=== PATIENT | female | born 1985 | race Caucasian/White ===

== ENCOUNTER 2016-10-13 14:52 | Emergency (ER) | payer OTHER ==
[2016-10-13] MEDS ORDERED: oxyCODONE/Acetamin 5/325 MG* TAB PO ONE ×2 (17:54→18:03)
--- NOTE | 2016-10-13 17:54 | ED ---
GI/ HPI - HPI Summary HPI Summary: 30F presents with anal fissure since June. She states the pain had been been manageable but in the past three days the pain has gotten worst. was seen at [facility] and given topical lidocaine which states has not helped. She has been using stool softeners daily. She denies any fevers or bloody stools. She does not have a history of crohns or UC. - History of Current Complaint Chief Complaint: EDGeneral Time Seen by Provider: 10/13/16 17:33 Stated Complaint: PAIN, Pain Intensity: 6 - Allergy/Home Medications Allergies/Adverse Reactions: Allergies Allergy/AdvReac Type Severity Reaction Status Date / Time Ciprofloxacin [From Cipro] Allergy Intermediate Rash Verified 10/13/16 14:59 Latex Allergy Intermediate Rash Verified 10/13/16 14:59 PMH/Surg Hx/FS Hx/Imm Hx Endocrine/Hematology History: Denies: Hx Diabetes, Hx Thyroid Disease Cardiovascular History: Denies: Hx Hypertension, Other Cardiovascular Problems/Disorders Respiratory History: Reports: Hx Asthma Denies: Hx Chronic Obstructive Pulmonary Disease (COPD), Other Respiratory Problems/Disorders GI History: Denies: Hx Ulcer, Other GI Disorders History: Reports: Hx Kidney Infection - 2006 Musculoskeletal History: Denies: Other Musculoskeletal History Sensory History: Reports: Hx Contacts or Glasses - GLASSES Denies: Hx Hearing Aid Opthamlomology History: Reports: Hx Contacts or Glasses - GLASSES Neurological History: Reports: Other Neuro Impairments/Disorders - ADD Psychiatric History: Reports: Hx Anxiety - ON MEDS - Surgical History Surgery Procedure, Year, and Place: Ovarian Cyst removal 2006 and 2012; wisdom teeth Hx Anesthesia Reactions: No Infectious Disease History: No Infectious Disease History: Denies: Hx Clostridium Difficile, Hx Hepatitis, Hx Human Immunodeficiency Virus (HIV), Hx of Known/Suspected MRSA, Hx Shingles, Hx Tuberculosis, Hx Known/ Suspected VRE, Hx Known/Suspected VRSA, History Other Infectious Disease, Traveled Outside the [place] in Last 30 Days - Family History Known Family History: Negative: Cardiac Disease - Social History Alcohol Use: Occasionally Substance Use Type: Reports: Marijuana Smoking Status (MU): Heavy Every Day Tobacco Smoker Type: Cigarettes Amount Used/How Often: 3/4 ppd Length of Time of Smoking/Using Tobacco: 4+ YEARS Review of Systems Negative: Fever Negative: Chest Pain Negative: Shortness Of Breath Positive: Other - anal fissure All Other Systems Reviewed And Are Negative: Yes Physical Exam Triage Information Reviewed: Yes Vital Signs On Initial Exam: Initial Vitals Temp Pulse Resp BP Pulse Ox 99.1 F 74 20 134/80 100 10/13/16 15:00 10/13/16 15:00 10/13/16 15:00 10/13/16 15:00 10/13/16 15:00 Vital Signs Reviewed: Yes Appearance: Positive: Well-Appearing Skin: Positive: Warm, Dry Head/Face: Positive: Normal Head/Face Inspection Eyes: Positive: Normal, Conjunctiva Clear Respiratory/Lung Sounds: Positive: Clear to Auscultation, Breath Sounds Present Cardiovascular: Positive: Normal, RRR Abdomen Description: Positive: Nontender, Soft, Other: - anal fissure present on exam, normal rectal tone Bowel Sounds: Positive: Present Diagnostics - Vital Signs Vital Signs Temp Pulse Resp BP Pulse Ox 10/13/16 15:00 99.1 F 74 20 134/80 100 - Laboratory Lab Statement: Any lab studies that have been ordered have been reviewed, and results considered in the medical decision making process. GIGU Course/Dx - Course Course Of Treatment: 30F presents with anal fissure since june. has tried stool softeners and recently topical lidocaine without relief. no history of crohns. on exam has anal fissure present. told to continue stool softeners and topical lidocaine. was unable to find in amb orders any order for topical nifedipine. prescibe percocet with pain with senna for constipation. told to follow up with surgery for definitive treatment, patient understands and agrees with plan - Diagnoses Differential Diagnoses - Female: Hemorrhoids, Perirectal Abscess, Rectal Fissure Provider Diagnoses: Anal fissure Discharge - Discharge Plan Condition: Good Disposition: HOME Prescriptions: Senna TAB* [Senokot TAB*] 1 tab PO BEDTIME #10 tab oxyCODONE/Acetamin 5/325 MG* [Percocet 5/325 TAB*] 1 tab PO Q6H PRN #12 tab MDD 4 PRN Reason: Pain Patient Education Materials: Anal Fissure (ED), Sitz Bath (GEN) Referrals: [facility] AKSHAT Frye [Primary Care Provider] - Simón Paul MD [Medical Doctor] - Additional Instructions: Follow up with surgery Take ibuprofen for pain every 6 hours, use narcotic for pain Use senna one tablet at night for constipation Try doing sitz baths at home Return to ED if develop any fevers, or any new or worsening symptoms
[2016-10-13 18:20] VITALS: BP 126/79
== END 2016-10-13 18:19 | disposition home or self-care (01) ==
LOC: ED 14:52
DX: K60.2 Anal fissure, unspecified (principal); F17.210 Nicotine dependence, cigarettes, uncomplicated
CPT/HCPCS: 99282; A9270-GY

== ENCOUNTER 2016-10-20 05:47 | Emergency (ER) | payer OTHER ==
[2016-10-20] MEDS ORDERED: NS 0.9% 1000 ML* 1,000 ML IV ONE (06:46)
--- NOTE | 2016-10-20 06:56 | ED ---
Syncope/Near Syncope - HPI Summary HPI Summary: Patient presents after feeling faint after she stood up to go to the bathroom. She has an anal fissure so she has been using over the counter and narcotic medication for pain as per Dr. Martinez, who is managing the fissure. She got up to get more pain medication and felt faint, so she sat back down on her bed and waited for the sensation to pass. Once it did, she walked to the bathroom and after sitting on the toilet for a moment she rested her head on the sink and thinks she "passed out". She has been using the narcotic medication for the past week, and up until this event she has felt at her baseline without recent illness. She denies hitting her head, CP, SOB, fever, chills, N/V/D, headache or lightheadedness. She recovered and feels "a little groggy" now. - History Of Current Complaint Chief Complaint: EDRectalPain Time Seen by Provider: 10/20/16 06:29 Hx Obtained From: Patient Onset/Duration: Gradual Onset Timing: Minutes Context: Unwitnessed Activity At Onset: Exertion Associated Head Trauma: No Aggravating Factor(s): Position Change Alleviating Factor(s): Spontaneous Resolution Associated Signs And Symptoms: Negative - Risk Factors Cardiac Risk Factors: Negative Dysrhythmia Risk Factors: Negative Risk Factor(s): Negative - Allergies/Home Medications Allergies/Adverse Reactions: Allergies Allergy/AdvReac Type Severity Reaction Status Date / Time Ciprofloxacin [From Cipro] Allergy Intermediate Rash Verified 10/20/16 06:04 Latex Allergy Intermediate Rash Verified 10/20/16 06:04 seasonal Allergy Mild Unknown Uncoded 10/20/16 06:04 Reaction Details stitches (dissolvable) Allergy Itching Uncoded 10/20/16 06:04 PMH/Surg Hx/FS Hx/Imm Hx Endocrine/Hematology History: Denies: Hx Diabetes, Hx Thyroid Disease Cardiovascular History: Denies: Hx Hypertension, Other Cardiovascular Problems/Disorders Respiratory History: Reports: Hx Asthma Denies: Hx Chronic Obstructive Pulmonary Disease (COPD), Other Respiratory Problems/Disorders GI History: Reports: Other GI Disorders - anal fissure Denies: Hx Ulcer History: Reports: Hx Kidney Infection - 2006 Musculoskeletal History: Denies: Other Musculoskeletal History Sensory History: Reports: Hx Contacts or Glasses - GLASSES Denies: Hx Hearing Aid Opthamlomology History: Reports: Hx Contacts or Glasses - GLASSES Psychiatric History: Reports: Hx Anxiety - ON MEDS, Hx Attention Deficit Hyperactivity Disorder - Surgical History Surgery Procedure, Year, and Place: Ovarian Cyst removal 2006 and 2012; wisdom teeth Hx Anesthesia Reactions: No Infectious Disease History: No Infectious Disease History: Denies: Hx Clostridium Difficile, Hx Hepatitis, Hx Human Immunodeficiency Virus (HIV), Hx of Known/Suspected MRSA, Hx Shingles, Hx Tuberculosis, Hx Known/ Suspected VRE, Hx Known/Suspected VRSA, History Other Infectious Disease, Traveled Outside the [place] in Last 30 Days - Family History Known Family History: Positive: None Negative: Cardiac Disease - Social History Occupation: Student Lives: With Family Alcohol Use: Occasionally Substance Use Type: Reports: Marijuana Smoking Status (MU): Heavy Every Day Tobacco Smoker Type: Cigarettes Amount Used/How Often: 3/4 ppd Length of Time of Smoking/Using Tobacco: 4+ YEARS Cessation Counseling: Patient Advised to Stop Review of Systems Negative: Fever, Chills Negative: Blurred Vision, Diplopia Negative: Chest Pain Negative: Shortness Of Breath Negative: Vomiting, Diarrhea, Nausea Positive: no symptoms reported Negative: Headache, Weakness, Paresthesia, Numbness, Syncope, Slurred Speech Negative: Anxious All Other Systems Reviewed And Are Negative: Yes Physical Exam Triage Information Reviewed: Yes Vital Signs On Initial Exam: Initial Vitals Temp Pulse Resp BP Pulse Ox 99.5 F 72 16 98/51 97 10/20/16 05:50 10/20/16 05:50 10/20/16 05:50 10/20/16 05:50 10/20/16 05:50 Vital Signs Reviewed: Yes Appearance: Positive: Well-Appearing, No Pain Distress, Well-Nourished Skin: Positive: Warm, Skin Color Reflects Adequate Perfusion, Dry, Soft Head/Face: Positive: Normal Head/Face Inspection Eyes: Positive: EOMI, GALINDO, Conjunctiva Clear ENT: Positive: Hearing grossly normal Neck: Positive: Supple, Nontender, No Lymphadenopathy Respiratory/Lung Sounds: Positive: Clear to Auscultation, Breath Sounds Present Cardiovascular: Positive: RRR Abdomen Description: Positive: Nontender, Soft. Negative: CVA Tenderness (R), CVA Tenderness (L), Distended, Guarding Bowel Sounds: Positive: Present Musculoskeletal: Negative: Edema Left, Edema Right Neurological: Positive: Sensory/Motor Intact, Alert, Oriented to Person Place, Time, CN Intact II-III, NV Bundle Intact Distally, Normal Gait Psychiatric: Positive: Affect/Mood Appropriate AVPU Assessment: Alert - Pepe Coma Scale Coma Scale Total: 15 Diagnostics - Vital Signs Vital Signs Temp Pulse Resp BP Pulse Ox 10/20/16 05:50 99.5 F 72 16 98/51 97 - Laboratory Lab Statement: Any lab studies that have been ordered have been reviewed, and results considered in the medical decision making process. - EKG No standard instances Cardiac Rate: NL EKG Rhythm: Sinus Rhythm ST Segment: Normal Ectopy: None Course/Dx Course Of Treatment: Patient will call Dr. Martinez's office to let them know her diagnosis so they can make a decision whether to proceed with her procedure on Saturday. She understands to take her antibiotics until they are completely gone. - Diagnoses Differential Diagnosis/HQI/PQRI: Positive: Dysrhythmia, Hypoglycemia, Medication Reaction, Seizure, Vasovagal Episode Provider Diagnoses: Vasovagal near syncope, Cellulitis of perianal area Discharge - Discharge Plan Condition: Stable Disposition: HOME Prescriptions: Amoxicillin/Clavulanate TAB* [Augmentin TAB 875*] 875 mg PO BID #19 tab Patient Education Materials: Near Syncope (ED), Cellulitis (ED) Referrals: [facility] RAMON Frye [Primary Care Provider] - Additional Instructions: Please call Dr. Martinez when you get home to let him know about your visit today and diagnosis. Take your antibiotics until they are completely gone. Take ibuprofen 600mg three times daily with meals, drink extra fluids and continue to use your pain medication as needed. Return to the emergency department if symptoms worsen.
[2016-10-20 07:12] LABS: Hematocrit 37 % (35-47); Hemoglobin 12.2 g/dl (12.0-16.0); Mean Corpuscular HGB Conc 33 g/dl (31-36); Mean Corpuscular Hemoglobin 29 pg (27-31); Mean Corpuscular Volume 88 fL (80-97); Mean Platelet Volume 7 um3 (7.4-10.4); Red Blood Count 4.23 10^6/ul (4.0-5.4); Red Cell Distribution Width 14 % (10.5-15); White Blood Count 19.1 10^3/ul (3.5-10.8)
[2016-10-20 07:30] LABS: Albumin 3.5 g/dL (3.2-5.2); BUN/Creatinine Ratio 16.1 (8-20); Calcium 8.9 mg/dL (8.6-10.3); EGFR African American 147.4 (>60); EGFR Non-African American 114.6 (>60); Globulin 3.5 g/dL (2-4); Magnesium 1.8 mg/dL (1.9-2.7); Potassium 4.3 mmol/L (3.5-5.0); Total Bilirubin 0.3 mg/dL (0.2-1.0)
[2016-10-20 07:33] LABS: Troponin I 0.02 ng/mL (<0.04)
[2016-10-20 08:01] LABS: TSH (Thyroid Stimulating Horm) 1.47 mcIU/mL (0.34-5.60)
[2016-10-20] MEDS ORDERED: Amoxicillin/Clavulanate TAB* 875 MG PO ONE (08:10)
[2016-10-20 08:45] VITALS: BP 100/61
== END 2016-10-20 14:42 | disposition home or self-care (01) ==
LOC: ED 05:47
DX: R55 Syncope and collapse (principal); K61.1 Rectal abscess
CPT/HCPCS: 36415; 80053; 83735; 84443; 84484; 84702; 85025; 93005; 99282; A9270-GY

== ENCOUNTER 2016-10-22 11:58 | Inpatient (IN) | payer OTHER ==
[~2016-10-22 11:58] MED LIST: Buffered Lidocaine 1% SYRIN* 3 ML/SYR SYRINGE INTRADERM ONE
[2016-10-22 12:17] LABS: UR Preg Internal Control QC Line Present
[2016-10-22] MEDS ORDERED: fentaNYL* 50 MCG/ML 2 ML VIAL (100 MCG VIAL) ONE ×2 (13:32→14:05)
[2016-10-22] MEDS ORDERED: Ondansetron INJ* 2 MG/ML VIAL ONE ×2 (13:32→14:05)
[2016-10-22] MEDS ORDERED: KETAMINE HCL* 50 MG/ML 10 ML VIAL ONE (14:05)
[2016-10-22] MEDS ORDERED: Lidocaine 2% PF* 5 ML VIAL ONE (14:05)
[2016-10-22] MEDS ORDERED: Ketorolac INJ* 30 MG/ML 1 ML VIAL ONE (14:05)
[2016-10-22] MEDS ORDERED: Propofol* 10 MG/ML 20 ML BTL IV PUSH ONE (14:05)
[2016-10-22] MEDS ORDERED: Dexamethasone IV* 4 MG/ML 1 ML (4 MG) ONE (14:05)
[2016-10-22] MEDS ORDERED: Midazolam* 1 MG/ML 5 ML VIAL (5 MG) ONE (14:06)
[2016-10-22] MEDS ORDERED: Onabotulinimtoxina 100 UNITS* VIAL ONE (15:00)
[2016-10-22] MEDS ORDERED: HYDROmorphone* 1 MG/ML 1 ML SYR IV SLOW PU ONE (15:14)
[2016-10-22] MEDS ORDERED: HYDROmorphone* 1 MG/ML 1 ML SYR ONE (15:18)
[2016-10-22] MEDS ORDERED: Acetaminophen TAB* 325 MG PO PRN (15:33)
[2016-10-22 15:39] LABS: Hematocrit 32 % (35-47); Hemoglobin 10.6 g/dl (12.0-16.0); Mean Corpuscular HGB Conc 33 g/dl (31-36); Mean Corpuscular Hemoglobin 29 pg (27-31); Mean Corpuscular Volume 86 fL (80-97); Mean Platelet Volume 7 um3 (7.4-10.4); Red Blood Count 3.69 10^6/ul (4.0-5.4); Red Cell Distribution Width 14 % (10.5-15)
[2016-10-22 15:43] LABS: Add Diff/Slide Review? Slide Review Added; Comments Flag Yes
[2016-10-22 15:59] LABS: BUN/Creatinine Ratio 21.3 (8-20); Calcium 8.5 mg/dL (8.6-10.3); EGFR African American 202.9 (>60); EGFR Non-African American 157.8 (>60); Globulin 3.2 g/dL (2-4); Potassium 3.8 mmol/L (3.5-5.0); Total Bilirubin 0.3 mg/dL (0.2-1.0); Total Protein 6.2 g/dL (6.4-8.9)
[2016-10-22] MEDS: HYDROmorphone* 1 MG/ML 1 ML SYR IV PRN ×5 (16:48→21:26)
[2016-10-22] MEDS: Ketorolac INJ* 15 MG/ML 1 ML VIAL IV PUSH PRN ×2 (16:49→23:19)
[2016-10-22] MEDS ORDERED: ZOSYN 3.375 GM ONE TIME DOSE-OVER 30 MINUTES IVPB (17:00)
[2016-10-22] MEDS ORDERED: Iohexol 300* (CONTRAST) 10 ML SDV IV ONE (19:17)
[2016-10-22 19:31] LABS: Urine Bacteria 2+ (Absent); Urine Bilirubin Negative (Negative); Urine Glucose Negative (Negative); Urine Nitrite Negative (Negative)
--- NOTE | 2016-10-22 20:18 | RAD ---
INDICATION: Severe perianal pain evaluate for abscess. COMPARISON: Comparison is made with a prior pelvic ultrasound from April 14, 2015. TECHNIQUE: Contiguous axial sections were obtained through the pelvis with intravenous and oral contrast. The exam was performed following intravenous injection of 95 ml of Omnipaque 300. Images were reconstructed in the coronal and sagittal planes. FINDINGS: There is a focal air-fluid collection present in the perianal region along the posterior inferior aspect of the anal canal and gluteal fold. This measures approximately 5.1 x 3.2 x 3.5 cm in size and is suspicious for an abscess. No enlarged pelvic or inguinal lymph nodes are seen. The visualized portion of the small bowel and colon appear nondistended. There is a moderate amount of retained stool present. The uterus is normal in size and retroverted. There is a cyst present within the pelvis on the left side the urinary 5.9 x 5.2 x 4.2 cm in size most consistent with an ovarian cyst. This is slightly larger than the cyst noted on the prior pelvic ultrasound. No free intraperitoneal fluid is seen. The bones are in normal alignment. No fracture is seen. Joint spaces appear maintained. IMPRESSION: 1. PERIANAL AIR-FLUID COLLECTION MOST CONSISTENT WITH AN ABSCESS. 2. 5.9 CM LEFT LEFT OVARIAN CYST, RECOMMEND A PELVIC ULTRASOUND FOR FURTHER EVALUATION.
[2016-10-22] MEDS ORDERED: Amphetamine MIXED SALT TAB* 10 MG TAB PO PRN (20:45)
[2016-10-22] MEDS: Piperac/Tazob 3.375 gm in NS* 3.375 GM/100 ML BAG IVPB SCH (21:19)
[2016-10-23] MEDS: HYDROmorphone* 1 MG/ML 1 ML SYR IV PRN ×5 (01:07→12:25)
[2016-10-23] MEDS: NS 0.9% 1000 ML* 1,000 ML IV SCH ×3 (01:07→20:57)
[2016-10-23] MEDS: Piperac/Tazob 3.375 gm in NS* 3.375 GM/100 ML BAG IVPB SCH ×3 (05:06→20:54)
--- NOTE | 2016-10-23 05:06 | HP ---
HISTORY AND PHYSICAL: DATE OF ADMISSION: 10/22/16 CHIEF COMPLAINT: Severe perianal discomfort. 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 Her pain had worsened and I am seeing her in the office. She would not permit a formal anal rectal exam due to the discomfort. She was scheduled for a anorectal exam under anesthesia today with possible Botox injection into the internal anal sphincter if a fissure was noted. However, over the weekend, she developed increasing discomfort, was seen in the emergency room on Saturday night. She also felt that she was somewhat feverish and apparently had a syncopal episode. While in the emergency room, she noted to be afebrile. However, she had a white blood cell count of 19,000. There were concerns about some perianal cellulitis and she was discharged home on Augmentin with the plan for followup as scheduled for today in the OR. The emergency room did not call the surgical service or my partner director of vocational guidance and I was not aware of this visit and change in condition. I am seeing her today in the same day surgical unit. She had significant discomfort in the perianal area. I appreciated no perianal or perirectal abscess or redness. She had tenderness on both sides, which was equal. She had no labile swelling. There is no drainage and she had excellent skin integrity. In light of this finding, her case was canceled today and she is to be admitted for further evaluation including starting IV antibiotics, keeping her n.p.o., and plans for a CT scan of her pelvis to rule out pelvic or perirectal abscess not visualized on exam. PAST MEDICAL HISTORY: 1. Post-traumatic stress disease. 2. Asthma. PAST SURGICAL HISTORY: Ovarian cystectomy. MEDICATIONS: Include: 1. Abilify 5 mg daily. 2. Adderall 10 mg p.r.n. 3. Adderall 20 mg daily. 4. Albuterol sulfate p.r.n. 5. Aviane 0.1 tablet by mouth daily. 6. Celexa 10 mg daily. 7. Flovent p.r.n. ALLERGIES: To CIPROFLOXACIN and LATEX. SOCIAL HISTORY: She is single. She lives alone. 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 She is a former smoker. Rarely consumes alcohol. Denies drug abuse. Exercises rarely. REVIEW OF SYSTEMS: She has had no constitutional symptoms other than that described above. No recent shakes, chills, or fever. CV: Denies cardiovascular. Respiratory: No respiratory shortness of breath. GI: As per above. She is still having some bowel movements, last one on Saturday without blood, melena, although it is uncomfortable. : She has noted perhaps a slight foul smell of her urine. PHYSICAL EXAMINATION GENERAL: Well-developed, well-nourished female, appears to be in no apparent distress. VITAL SIGNS: Temperature 98.2, pulse 80, blood pressure 100/53, respirations 16. LUNGS: Clear to auscultation with normal respiratory effort. HEART: Regular rate and rhythm without murmurs, rubs, or gallops. ABDOMEN: Soft, nondistended. She has no tenderness, rebound, or guarding. She had diminished bowel sounds throughout. Perianal area shows no evidence of obvious erythema, swelling, localized tenderness. However, she does have pain on palpation of the entire perianal area, but no evidence of fluctuance or obvious sign of abscess. Labia appeared to be unremarkable. LABORATORY DATA: Repeat laboratory values today included a white blood cell count of 21,000, hemoglobin of 10.6. Electrolytes, BUN and creatinine were within normal limits. She had a lower albumin of 3, slightly low. Her test was negative. IMPRESSION: Pelvic/anal discomfort without obvious perianal, perirectal abscess noted on exam. She has had problems with discomfort since June. She had been treated several months for what was felt to be a fissure. She now has a significant leukocytosis despite being on antibiotics and was initially planned today for anorectal exam under anesthesia. PLAN: 1. At this point, I feel that imaging is indicated prior to a trip to the operating room should this be necessary. I do not see a localizing abscess and before we would go to the operating room, I would like to proceed with a CT scan of her pelvis with oral and IV contrast to evaluate for higher abscess, possibly intersphincteric abscess that is not evident clearly today on physical examination. 2. We will start her on IV Zosyn. 3. Urinalysis with urine culture will also be obtained if indicated. 4. I discussed all of the plan and care with the patient and her mother, who was present in the same day surgery at the unit and answered their questions. CC: [facility]; [facility] * [id number]/[facility] #: [id number] MAMI
[2016-10-23 06:18] LABS: Hematocrit 29 % (35-47); Hemoglobin 9.4 g/dl (12.0-16.0); Mean Corpuscular HGB Conc 33 g/dl (31-36); Mean Corpuscular Hemoglobin 29 pg (27-31); Mean Corpuscular Volume 87 fL (80-97); Mean Platelet Volume 7 um3 (7.4-10.4); Red Blood Count 3.31 10^6/ul (4.0-5.4); Red Cell Distribution Width 14 % (10.5-15); White Blood Count 16.9 10^3/ul (3.5-10.8)
[2016-10-23 06:19] LABS: Add Diff/Slide Review? Slide Review Added; Comments Flag Yes
[2016-10-23] MEDS: Citalopram TAB* 10 MG PO SCH ×2 (09:01→20:52)
[2016-10-23] MEDS: Amphetamine MIXED SALT TAB* 10 MG TAB PO SCH (09:01)
[2016-10-23] MEDS: ARIPiprazole TAB* 5 MG PO SCH ×2 (09:01→20:52)
[2016-10-23] MEDS: Ketorolac INJ* 15 MG/ML 1 ML VIAL IV PUSH PRN (09:37)
[2016-10-23] MEDS ORDERED: HYDROmorphone* 1 MG/ML 1 ML SYR ONE (12:19)
[2016-10-23] MEDS ORDERED: Midazolam* 1 MG/ML 2 ML VIAL (2 MG) ONE (12:54)
[2016-10-23] MEDS ORDERED: Propofol* 10 MG/ML 20 ML BTL IV PUSH ONE (13:34)
[2016-10-23] MEDS ORDERED: Lidocaine 2% PF* 5 ML VIAL ONE (13:34)
[2016-10-23] MEDS ORDERED: Dexamethasone IV* 4 MG/ML 1 ML (4 MG) ONE (13:34)
[2016-10-23] MEDS ORDERED: fentaNYL* 50 MCG/ML 2 ML VIAL (100 MCG VIAL) ONE ×2 (13:34→16:05)
[2016-10-23] MEDS ORDERED: Rocuronium* 10 MG/ML VIAL ONE (13:35)
[2016-10-23] MEDS ORDERED: Ondansetron INJ* 2 MG/ML VIAL IV PRN (13:50)
[2016-10-23] MEDS ORDERED: fentaNYL* 50 MCG/ML 2 ML VIAL (100 MCG VIAL) IV PRN (13:50)
[2016-10-23] MEDS ORDERED: Acetaminophen TAB* 325 MG PO PRN (13:50)
[2016-10-23] MEDS ORDERED: DiMENhydriNATE IV* 50 MG/ML VIAL IV PUSH PRN (13:50)
[2016-10-23] MEDS ORDERED: PROCHLORPERAZINE INJ 5 MG/ML 2 ML VIAL IV PRN (13:50)
[2016-10-23] MEDS ORDERED: Bupivacaine 0.5% W/EPI SDV* 30 ML VIAL ONE (14:01)
[2016-10-23] MEDS ORDERED: Desflurane* 240 ML INH ONE (14:05)
[2016-10-23] MEDS ORDERED: Neostigmine Methylsulfate* 2 MG/2 ML SYRINGE ONE (14:33)
--- NOTE | 2016-10-23 14:39 | SURGPN ---
Brief Operative Note - Surgery Procedures: Procedures OPERATIVE REPORT PRE-OP: Zarina-rectal Abscess POST-OP: Same PROCEDURE: Incision and drainage of zarina-rectal abscess SURGEON: MD Juan ANESTHESIA: General with local with Dr. Abreu ASST: Axel Sousa MS-3 IVF: min EBL: min SPECIMEN: Fluid for gram stain and culture DRAIN: 07/18" Nu_gauze packing WOUND CLASS: 4 COMPLICATIONS: none TO PACU
[2016-10-23] MEDS ORDERED: oxyCODONE/Acetamin 5/325 MG* TAB PO PRN (14:40)
[2016-10-23] MEDS: Ketorolac INJ* 30 MG/ML 1 ML VIAL IV PUSH PRN (17:53)
[2016-10-23] MEDS: oxyCODONE/Acetamin 5/325 MG* TAB PO PRN ×2 (17:54→22:31)
[2016-10-24] MEDS: oxyCODONE/Acetamin 5/325 MG* TAB PO PRN ×5 (03:47→20:19)
[2016-10-24] MEDS: Piperac/Tazob 3.375 gm in NS* 3.375 GM/100 ML BAG IVPB SCH ×3 (04:47→20:55)
--- NOTE | 2016-10-24 07:06 | OP ---
DATE OF OPERATION: 10/23/16 - ROOM #[id number] DATE OF : 89 SURGEON: Jose Martinez MD EARTH MOVER: Axel Mendoza MS-3. ANESTHESIOLOGIST: Dr. Abreu ANESTHESIA: General with local anesthetic. PRE-OP DIAGNOSIS: Perirectal abscess. POST-OP DIAGNOSIS: Perirectal abscess. OPERATIVE PROCEDURE: Incision and drainage of perirectal abscess. DRAINS: One-quarter inch Nu Gauze packing. WOUND CLASSIFICATION: IV. SPECIMEN: Pus for Gram stain and culture. COMPLICATIONS: None. FINDINGS: The abscess appeared to start spontaneously draining with placement of pressure in the posterior anal verge area after the patient was anesthetized and appeared to be draining through the posterior midline anal canal, where there was also exposed what appeared to be the external anal sphincter. Difficult to determine this is a true intersphincteric abscess as it extended posterior and laterally on both sides into the ischioanal space. Large amount of pus was drained. The wound was packed. No counter incisions were made, but as it appeared to be adequately drained. BRIEF HISTORY: Ms. 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 She was seen at the [facility] for several months, treated with appropriate supportive measures including sitz bath, stool softener, and nitroglycerin ointment. This did not improve. She was referred for surgical evaluation. On initial surgical visit, she stated the last 10 days she had some increasing discomfort, which was different than she has noted in the last several months. She was scheduled for an exam under anesthesia as exam in the office was difficult and very uncomfortable. Just prior to the scheduled surgical procedure, she presented to the emergency room with increasing discomfort as well as syncopal episode. She is noted to have elevated white blood cell count. Imaging studies were not done. She was discharged on Augmentin and followed up yesterday for her planned surgical procedure, which was scheduled to be an anorectal exam under anesthesia with possible Botox injection for a presumed anal fissure. After reviewing her emergency room records and her elevated white blood count, the procedure was canceled yesterday. She was admitted to the hospital and underwent lab values, which showed a white blood cell count of 21,000. She underwent a CT scan of the pelvis last night, which showed a posterior anal abscess. She is now being taken to the operating room for an exam under anesthesia with incision and drainage of perirectal abscess. The procedure was discussed in detail with the patient and her mother, and the risks but not limited to bleeding, infection, further surgical intervention depending on clinical course, possibility of injury and/or division of anal sphincter muscles resulting in temporary or permanent incontinence, discomfort, long-term wound care, risk of anesthesia, and deep vein thrombosis were all explained. DESCRIPTION OF PROCEDURE: Written informed consent was obtained and the patient was already receiving intravenous antibiotics. She was taken to the operating room and general anesthesia was administered. She was placed in the prone jackknife position. Sequential compression devices and warming blanket were applied. The perianal and buttock cheeks and lower back were prepped and draped in the usual sterile fashion. Time-out verification was completed. Once just as we were spreading the buttock cheeks, it was obvious that there was very superficial tear in the anoderm anteriorly, which did not appear to be abnormal. There was more induration posterior to the posterior anal verge both to the left and the right. Upon pressing this area, there became some spontaneous purulent drainage from what appear to be the anal canal, but on spreading the buttock cheeks more, appeared to be through the space where there was a posterior anal fissure with exposed external anal sphincter muscle. This was a short segment. This is only about 1 cm of sphincter was noted and the opening extended posteriorly and laterally on both sides and I did divide some of the anoderm more proximally into the anal canal to open up the site to provide adequate drainage. Cultures of the creamy foul-smelling pus were obtained and I irrigated the cavity nicely and it was adequately drained. At this point, it was very difficult for me to tell if this was truly external sphincter that was exposed and if so was this an intersphincteric abscess, which had spread what appeared to be outside the external portion of the external sphincter muscle. At this point, I felt that there was no further abscess more anteriorly and that this abscess was adequately drained and rather than attempt any further division of the muscle, which I was not to identify, I felt with the septic foci drained, the wound was packed with one-quarter inch Nu Gauze and no further counterincisions were made with concern that obviously could result in fistulas communication or incontinence if I should rather divide further muscle. With this in mind, dry sterile dressings were then placed. Further 0.25% Marcaine was infiltrated extensively in the perianal area, postoperative pain management. The patient tolerated the procedure well and was taken to the recovery room in stable condition. CC: [facility]* [id number]/[facility] #: [id number] MAMI
[2016-10-24] MEDS: ARIPiprazole TAB* 5 MG PO SCH (08:10)
[2016-10-24] MEDS: Citalopram TAB* 10 MG PO SCH (08:10)
[2016-10-24] MEDS: Ketorolac INJ* 30 MG/ML 1 ML VIAL IV PUSH PRN ×2 (08:11→14:38)
[2016-10-24] MEDS: Amphetamine MIXED SALT TAB* 10 MG TAB PO SCH (08:13)
[2016-10-24] MEDS: PTO:Fluticasone HFA 110 mcg(NF) MDI INH SCH ×2 (09:43→20:13)
[2016-10-24] MEDS: PTO:Albuterol HFA INHALER* 8 gm MDI INH PRN ×2 (09:45→20:12)
[2016-10-24] MEDS: Magnesium Hydroxide LIQ* 30 ML UDC PO SCH ×2 (09:50→20:55)
--- NOTE | 2016-10-24 10:10 | PN ---
Progress Note - Progress Note SOAP: Subjective: Pain slightly improved today. She is tolerating po and urinating without difficulty. Having some drainage per anus Objective: Temp Pulse Resp BP Pulse Ox 98.2 F 44 16 105/63 97 10/24/16 07:26 10/24/16 07:26 10/24/16 07:26 10/24/16 07:26 10/24/16 07:26 Intake & Output 10/22/16 10/23/16 10/24/16 10/25/16 06:59 06:59 06:59 06:59 Intake Total 2354 4911 320 Output Total 1300 2300 Balance 1054 2611 320 Weight 157 lb Intake: IV Fluids 1809 3066 ABX - PIPERACILLIN 109 LR 700 NS' 1365 IVPB 105 Oral 440 1845 320 Output: Urine 1300 2300 PEX: Comfortable Lungs are CTA Abd is soft and non-tender Christie-anal area-- some mild erythema posteriorly. Packing in place--about 5-6 inches removed and cut. Small amount of seroanguinous drainage. Cultures pending Assessment: POD # 1 s/p I and D of perirectal abscess Plan: Continue IV antibiotics Sitz baths and analgesia Will "Inch out" packing daily as I think with location up in anal canal it will be difficult to completely remove and re-pack She is not ready for discharge.
[2016-10-24] MEDS: Heparin VIAL(*) 5000 UNITS/ML VIAL (FIVE THOUSAND) SUBCUT SCH (22:39)
[2016-10-25] MEDS: oxyCODONE/Acetamin 5/325 MG* TAB PO PRN ×5 (00:43→21:47)
[2016-10-25] MEDS: Piperac/Tazob 3.375 gm in NS* 3.375 GM/100 ML BAG IVPB SCH ×3 (05:06→22:00)
[2016-10-25] MEDS: Heparin VIAL(*) 5000 UNITS/ML VIAL (FIVE THOUSAND) SUBCUT SCH ×3 (06:00→22:13)
[2016-10-25 06:20] LABS: Hematocrit 30 % (35-47); Hemoglobin 9.6 g/dl (12.0-16.0); Mean Corpuscular HGB Conc 32 g/dl (31-36); Mean Corpuscular Hemoglobin 28 pg (27-31); Mean Corpuscular Volume 88 fL (80-97); Mean Platelet Volume 7 um3 (7.4-10.4); Red Blood Count 3.41 10^6/ul (4.0-5.4); Red Cell Distribution Width 14 % (10.5-15)
[2016-10-25] MEDS: Ketorolac INJ* 30 MG/ML 1 ML VIAL IV PUSH PRN ×3 (07:50→22:42)
[2016-10-25] MEDS: PTO:Fluticasone HFA 110 mcg(NF) MDI INH SCH ×2 (07:54→19:22)
[2016-10-25] MEDS ORDERED: PROCHLORPERAZINE INJ 5 MG/ML 2 ML VIAL IV PRN (09:39)
[2016-10-25] MEDS ORDERED: diPHENhydraMINE PO* 25 MG PO ONE (09:42)
[2016-10-25] MEDS: HYDROmorphone* 1 MG/ML 1 ML SYR IV PRN ×3 (09:43→21:54)
[2016-10-25] MEDS: Magnesium Hydroxide LIQ* 30 ML UDC PO SCH ×2 (09:47→22:11)
[2016-10-25] MEDS: ARIPiprazole TAB* 5 MG PO SCH (10:11)
[2016-10-25] MEDS: Amphetamine MIXED SALT TAB* 10 MG TAB PO SCH (10:11)
[2016-10-25] MEDS: Citalopram TAB* 10 MG PO SCH (10:11)
--- NOTE | 2016-10-25 10:17 | PN ---
Progress Note - Progress Note SOAP: Subjective: Reports pain being about the same, not any worse today. Ambulatory, denies fever or chills, tolerating diet. Some nausea last night, no vomiting. Nurse was concerned about some mild bilateral periorbital swelling Patient denies SOB, itching or visual changes. Objective: Awake and alert, laying prone on her bed, in NAD VSS, afebrile Eye exam with mild bilateral symmetrical periorbital swelling, non-tender. No erythema or induration. Lungs CTA bilat. Abdomen soft, NT. ND Perianal exam with mild residual erythema noted at 12 o'clock position, no induration, mild tenderness. Packing inched out approx. 3 inches, minimal purulent discharge noted. Clean dressing applied. Labs noted, WBCs 16,00 Assessment: Perianal abscess, POD#2, s/p I&D perianal abscess, improving. Periorbital swelling, suspect patient has been laying in prone position for an extended periods of time. No evidence of any allergic reactions. Plan: Continue IV Abx Sitz bath daily and encourage ambulating as tolerated. Benadryl PO once today. She is slowly improving, not ready for discharge yet, possibly tomorrow.
[2016-10-26] MEDS: HYDROmorphone* 1 MG/ML 1 ML SYR IV PRN ×8 (01:42→22:44)
[2016-10-26] MEDS: oxyCODONE/Acetamin 5/325 MG* TAB PO PRN ×5 (02:08→19:52)
[2016-10-26] MEDS: Piperac/Tazob 3.375 gm in NS* 3.375 GM/100 ML BAG IVPB SCH ×3 (05:21→22:22)
[2016-10-26] MEDS: Heparin VIAL(*) 5000 UNITS/ML VIAL (FIVE THOUSAND) SUBCUT SCH ×3 (05:21→22:22)
[2016-10-26] MEDS: Ketorolac INJ* 30 MG/ML 1 ML VIAL IV PUSH PRN ×3 (06:34→19:00)
[2016-10-26 07:35] LABS: Hematocrit 33 % (35-47); Hemoglobin 11.2 g/dl (12.0-16.0); Mean Corpuscular HGB Conc 34 g/dl (31-36); Mean Corpuscular Hemoglobin 29 pg (27-31); Mean Corpuscular Volume 86 fL (80-97); Mean Platelet Volume 7 um3 (7.4-10.4); Red Blood Count 3.86 10^6/ul (4.0-5.4); Red Cell Distribution Width 14 % (10.5-15); White Blood Count 19.7 10^3/ul (3.5-10.8)
[2016-10-26 07:39] LABS: Add Diff/Slide Review? Slide Review Added; Comments Flag Yes
[2016-10-26] MEDS: Magnesium Hydroxide LIQ* 30 ML UDC PO SCH ×2 (09:30→19:41)
[2016-10-26] MEDS: Citalopram TAB* 10 MG PO SCH (09:31)
[2016-10-26] MEDS: PTO:Fluticasone HFA 110 mcg(NF) MDI INH SCH ×2 (09:31→19:52)
[2016-10-26] MEDS: ARIPiprazole TAB* 5 MG PO SCH (09:31)
[2016-10-26] MEDS: Amphetamine MIXED SALT TAB* 10 MG TAB PO SCH ×2 (09:31→09:37)
[2016-10-26] MEDS ORDERED: HYDROmorphone* 1 MG/ML 1 ML SYR IV SLOW PU ONE (11:38)
--- NOTE | 2016-10-26 12:14 | PN ---
Progress Note - Progress Note SOAP: Subjective: Reports perirectal pain, not improving much, but denies fever or chills. Also reports being occasionally incontinent of stools. Denies bleeding or discharge from perirectal area. Objective: VSS, afebrile Perianal exam done after patient pre-medicated. Area with more induration and tenderness noted. Packing gauze removed with more pus evacuated. A small length of new 1/4 packing gauze inserted and had to stop due to patient intolerance. Dressing changed. WBCs up to 19,000 Assessment: A 30 y/o female with increasing pain from I&D of perirectal abscess. Plan: Continue IV Abx, and pain control Patient requested to speak to her therapist, has been feeling more sadness and crying more often. Will try to approach her therapist, if we can't, will obtain a psych eval. Discussed with , and who will be covering over the weekend.
[2016-10-26] MEDS: LORazepam TAB(*) 0.5 MG PO PRN (18:03)
[2016-10-27] MEDS: oxyCODONE/Acetamin 5/325 MG* TAB PO PRN ×5 (00:14→19:18)
[2016-10-27] MEDS: Piperac/Tazob 3.375 gm in NS* 3.375 GM/100 ML BAG IVPB SCH ×3 (05:38→21:23)
[2016-10-27] MEDS: LORazepam TAB(*) 0.5 MG PO PRN (05:39)
[2016-10-27] MEDS: Heparin VIAL(*) 5000 UNITS/ML VIAL (FIVE THOUSAND) SUBCUT SCH ×3 (05:45→21:55)
[2016-10-27] MEDS: PTO:Fluticasone HFA 110 mcg(NF) MDI INH SCH ×2 (05:55→21:42)
[2016-10-27] MEDS: HYDROmorphone* 1 MG/ML 1 ML SYR IV PRN ×2 (05:55→08:31)
[2016-10-27] MEDS: Magnesium Hydroxide LIQ* 30 ML UDC PO SCH ×2 (08:08→21:09)
[2016-10-27] MEDS: ARIPiprazole TAB* 5 MG PO SCH (08:11)
[2016-10-27] MEDS: Citalopram TAB* 10 MG PO SCH (08:11)
[2016-10-27] MEDS: Amphetamine MIXED SALT TAB* 10 MG TAB PO SCH (08:12)
[2016-10-27 08:28] LABS: Comments Flag Yes; Hematocrit 33 % (35-47); Hemoglobin 10.3 g/dl (12.0-16.0); Mean Corpuscular HGB Conc 32 g/dl (31-36); Mean Corpuscular Hemoglobin 28 pg (27-31); Mean Corpuscular Volume 89 fL (80-97); Mean Platelet Volume 7 um3 (7.4-10.4); Red Blood Count 3.65 10^6/ul (4.0-5.4); Red Cell Distribution Width 14 % (10.5-15); White Blood Count 28.8 10^3/ul (3.5-10.8)
[2016-10-27 08:29] LABS: Add Diff/Slide Review? Slide Review Added
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
[2016-10-28] MEDS: oxyCODONE/Acetamin 5/325 MG* TAB PO PRN ×6 (02:15→23:45)
[2016-10-28] MEDS: Heparin VIAL(*) 5000 UNITS/ML VIAL (FIVE THOUSAND) SUBCUT SCH ×3 (05:24→22:24)
[2016-10-28] MEDS: Piperac/Tazob 3.375 gm in NS* 3.375 GM/100 ML BAG IVPB SCH ×3 (05:25→22:24)
[2016-10-28 06:11] LABS: Hematocrit 27 % (35-47); Hemoglobin 8.9 g/dl (12.0-16.0); Mean Corpuscular HGB Conc 33 g/dl (31-36); Mean Corpuscular Hemoglobin 28 pg (27-31); Mean Corpuscular Volume 86 fL (80-97); Mean Platelet Volume 6 um3 (7.4-10.4); Red Blood Count 3.13 10^6/ul (4.0-5.4); Red Cell Distribution Width 14 % (10.5-15); White Blood Count 19.8 10^3/ul (3.5-10.8)
[2016-10-28] MEDS: LORazepam TAB(*) 0.5 MG PO PRN (07:09)
[2016-10-28] MEDS: PTO:Fluticasone HFA 110 mcg(NF) MDI INH SCH ×2 (07:11→19:38)
[2016-10-28] MEDS: Magnesium Hydroxide LIQ* 30 ML UDC PO SCH ×2 (08:55→22:21)
[2016-10-28] MEDS: Citalopram TAB* 10 MG PO SCH (08:59)
[2016-10-28] MEDS: ARIPiprazole TAB* 5 MG PO SCH (08:59)
[2016-10-28] MEDS: Amphetamine MIXED SALT TAB* 10 MG TAB PO SCH ×2 (08:59→13:00)
[2016-10-28] MEDS: HYDROmorphone* 1 MG/ML 1 ML SYR IV PRN ×3 (09:00→17:52)
[2016-10-28 18:34] LABS: Hematocrit 26 % (35-47); Hemoglobin 8.7 g/dl (12.0-16.0)
[2016-10-29] MEDS: oxyCODONE/Acetamin 5/325 MG* TAB PO PRN ×4 (04:14→19:55)
[2016-10-29] MEDS: Piperac/Tazob 3.375 gm in NS* 3.375 GM/100 ML BAG IVPB SCH ×3 (05:40→21:39)
[2016-10-29] MEDS: Heparin VIAL(*) 5000 UNITS/ML VIAL (FIVE THOUSAND) SUBCUT SCH (05:43)
[2016-10-29 07:34] LABS: Hematocrit 26 % (35-47); Hemoglobin 8.4 g/dl (12.0-16.0); Mean Corpuscular HGB Conc 33 g/dl (31-36); Mean Corpuscular Hemoglobin 28 pg (27-31); Mean Corpuscular Volume 86 fL (80-97); Mean Platelet Volume 6 um3 (7.4-10.4); Red Blood Count 2.95 10^6/ul (4.0-5.4); Red Cell Distribution Width 14 % (10.5-15); White Blood Count 13.5 10^3/ul (3.5-10.8)
[2016-10-29] MEDS: Citalopram TAB* 10 MG PO SCH (07:57)
[2016-10-29] MEDS: ARIPiprazole TAB* 5 MG PO SCH (08:00)
[2016-10-29] MEDS: PTO:Fluticasone HFA 110 mcg(NF) MDI INH SCH ×2 (08:00→21:40)
[2016-10-29] MEDS: Amphetamine MIXED SALT TAB* 10 MG TAB PO SCH ×2 (08:03→13:01)
[2016-10-29] MEDS: Magnesium Hydroxide LIQ* 30 ML UDC PO SCH ×2 (08:03→21:37)
[2016-10-29] MEDS: NS 0.9% 1000 ML* 1,000 ML IV SCH ×2 (11:06→11:08)
[2016-10-29] MEDS: HYDROmorphone* 1 MG/ML 1 ML SYR IV PRN ×8 (12:56→19:56)
[2016-10-29] MEDS: ETHINYL ESTRADIOL PO SCH ×2 (13:01→21:39)
[2016-10-29] MEDS: NORETHINDRONE PO SCH ×2 (13:01→21:39)
[2016-10-29] MEDS ORDERED: Buffered Lidocaine 1% SYRIN* 3 ML/SYR SYRINGE INTRADERM ONE (14:53)
[2016-10-29] MEDS ORDERED: Famotidine IV* 10 MG/ML 2 ML (20 mg) IV ONE (14:53)
[2016-10-29] MEDS ORDERED: Dexamethasone IV* 4 MG/ML 1 ML (4 MG) IV SLOW PU ONE (14:53)
[2016-10-29] MEDS ORDERED: Ondansetron INJ* 2 MG/ML VIAL IV PRN (14:54)
[2016-10-29] MEDS ORDERED: Dexamethasone IV* 4 MG/ML 1 ML (4 MG) ONE (14:54)
[2016-10-29] MEDS ORDERED: Famotidine IV* 10 MG/ML 2 ML (20 mg) ONE (14:54)
[2016-10-29] MEDS ORDERED: oxyCODONE/Acetamin 5/325 MG* TAB PO PRN (14:54)
[2016-10-29] MEDS ORDERED: Midazolam* 1 MG/ML 5 ML VIAL (5 MG) ONE (15:12)
[2016-10-29] MEDS ORDERED: fentaNYL* 50 MCG/ML 5 ML VIAL (250 MCG VIAL) ONE (15:12)
[2016-10-29] MEDS ORDERED: Succinylcholine* 20 MG/ML 10 ML VIAL ONE (15:13)
[2016-10-29] MEDS ORDERED: Propofol* 10 MG/ML 20 ML BTL IV PUSH ONE (15:13)
[2016-10-29] MEDS ORDERED: Lidocaine 2% PF* 5 ML VIAL ONE (15:13)
[2016-10-29] MEDS ORDERED: Ondansetron INJ* 2 MG/ML VIAL ONE (15:13)
[2016-10-29] MEDS ORDERED: Bupivacaine 0.5% W/EPI SDV* 30 ML VIAL ONE (15:49)
[2016-10-29] MEDS ORDERED: fentaNYL* 50 MCG/ML 2 ML VIAL (100 MCG VIAL) ONE ×4 (16:02→17:20)
[2016-10-29] MEDS ORDERED: Surgical Lubricant STERILE* 120 GM TOP.GEL ONE (16:14)
--- NOTE | 2016-10-29 16:44 | PN ---
Progress Note - Progress Note Note: Brief Operative Note: Pre and Postop Dxs: perirectal abscess Procedure: EUA; rigid sigmoidoscopy; seton placement w/ vessel loops (2) Anesthesia: SHAWNA Surgeon: Juan EBL: <100 ml Drains/Packs: 1/2" plain nugauze; vessel loop x 2
[2016-10-29] MEDS ORDERED: HYDROmorphone* 1 MG/ML 1 ML SYR ONE (16:45)
[2016-10-29] MEDS: fentaNYL* 50 MCG/ML 2 ML VIAL (100 MCG VIAL) IV PRN ×4 (17:06→17:36)
[2016-10-29 19:38] LABS: Hematocrit 28 % (35-47); Hemoglobin 9.3 g/dl (12.0-16.0); Mean Corpuscular HGB Conc 33 g/dl (31-36); Mean Corpuscular Hemoglobin 28 pg (27-31); Mean Corpuscular Volume 87 fL (80-97); Mean Platelet Volume 6 um3 (7.4-10.4); Red Blood Count 3.28 10^6/ul (4.0-5.4); Red Cell Distribution Width 14 % (10.5-15); White Blood Count 24.9 10^3/ul (3.5-10.8)
[2016-10-29 19:50] LABS: Add Diff/Slide Review? Slide Review Added; Comments Flag Yes
[2016-10-30] MEDS: oxyCODONE/Acetamin 5/325 MG* TAB PO PRN ×6 (00:37→22:18)
[2016-10-30] MEDS: HYDROmorphone* 1 MG/ML 1 ML SYR IV PRN ×7 (01:08→22:22)
[2016-10-30] MEDS: Piperac/Tazob 3.375 gm in NS* 3.375 GM/100 ML BAG IVPB SCH ×3 (05:20→21:03)
[2016-10-30 05:48] LABS: Hematocrit 27 % (35-47); Hemoglobin 8.8 g/dl (12.0-16.0); Mean Corpuscular HGB Conc 33 g/dl (31-36); Mean Corpuscular Hemoglobin 28 pg (27-31); Mean Corpuscular Volume 86 fL (80-97); Mean Platelet Volume 6 um3 (7.4-10.4); Red Blood Count 3.13 10^6/ul (4.0-5.4); Red Cell Distribution Width 14 % (10.5-15); White Blood Count 18.4 10^3/ul (3.5-10.8)
[2016-10-30 06:07] LABS: Albumin 3.1 g/dL (3.2-5.2); BUN/Creatinine Ratio 14.5 (8-20); Calcium 8.9 mg/dL (8.6-10.3); EGFR African American 169.3 (>60); EGFR Non-African American 131.6 (>60); Globulin 3.5 g/dL (2-4); Potassium 4.2 mmol/L (3.5-5.0); Total Bilirubin 0.2 mg/dL (0.2-1.0); Total Protein 6.6 g/dL (6.4-8.9)
[2016-10-30] MEDS: Amphetamine MIXED SALT TAB* 10 MG TAB PO SCH ×2 (07:33→10:34)
[2016-10-30] MEDS: ARIPiprazole TAB* 5 MG PO SCH (08:48)
[2016-10-30] MEDS: Citalopram TAB* 10 MG PO SCH (08:48)
[2016-10-30] MEDS: NORETHINDRONE PO SCH (08:48)
[2016-10-30] MEDS: ETHINYL ESTRADIOL PO SCH (08:48)
[2016-10-30] MEDS: PTO:Fluticasone HFA 110 mcg(NF) MDI INH SCH ×2 (08:49→20:24)
--- NOTE | 2016-10-30 09:01 | PN ---
Progress Note - Progress Note SOAP: Subjective: Pain somewhat better today No further rectal bleeding and minimal drainage Urinating without difficulty Objective: Temp Pulse Resp BP Pulse Ox 97.9 F 70 18 109/54 97 10/30/16 07:13 10/30/16 07:13 10/30/16 08:32 10/30/16 07:13 10/30/16 07:13 Intake & Output 10/28/16 10/29/16 10/30/16 10/31/16 06:59 06:59 06:59 06:59 Intake Total 883.2 2605 2715 Output Total 7439 006 3361 300 Balance -456.8 1715 -885 -300 Intake: IV Fluids 50.2 70 1335 LR 1335 NS' 50.2 70 IVPB 213 325 ABX - PIPERACILLIN 213 325 Oral 620 2210 1380 Output: Urine 3727 111 6704 300 Other: Estimated Void Medium # Bowel Movements 1 Estimated Stool Amount Medium # Voids 1 PEX: Comfortable Lungs are CTA Abd is soft and non-tender Anal outer dressing changed--clean with some odor but no evidence of bleeding and minimal seropurulent drainage. Packing in place. Laboratory Results - last 24 hr 10/29/16 10/30/16 10/30/16 19:21 05:25 05:25 WBC 24.9 H 18.4 H RBC 3.28 L 3.13 L Hgb 9.3 L 8.8 L Hct 28 L 27 L MCV 87 86 MCH 28 28 MCHC 33 33 RDW 14 14 Plt Count 677 H D 692 H MPV 6 L 6 L Neut % (Auto) 92.4 H 87.0 H Lymph % (Auto) 4.8 L 9.1 L [place] % (Auto) 2.0 3.8 Eos % (Auto) 0.5 0 Baso % (Auto) 0.3 0.1 Absolute Neuts (auto) 23.0 H 16.0 H Absolute Lymphs (auto) 1.2 1.7 Absolute Monos (auto) 0.5 0.7 Absolute Eos (auto) 0.1 0 Absolute Basos (auto) 0.1 0 Absolute Nucleated RBC 0.01 0 Nucleated RBC % 0 0 Sodium 134 Potassium 4.2 Chloride 103 Carbon Dioxide 25 Anion Gap 6 BUN 8 Creatinine 0.55 Est GFR ( Amer) 169.3 Est GFR (Non-Af Amer) 131.6 BUN/Creatinine Ratio 14.5 Glucose 136 H Calcium 8.9 Total Bilirubin 0.20 AST 33 ALT 35 Alkaline Phosphatase 66 Total Protein 6.6 Albumin 3.1 L Globulin 3.5 Albumin/Globulin Ratio 0.9 L Assessment: S/P I and D rectal abscess -exam under anesthesia H/H stable without further evidence of bleeding WBC trending down Plan: Continue IV zosyn Po as tolerated sitz bathe Will slowly "back out" packing over the next 24-48 hours. All operative findings and plan discussed with patient and her mother last night and their questions were answered.
[2016-10-30] MEDS: Magnesium Hydroxide LIQ* 30 ML UDC PO SCH ×2 (10:35→21:04)
--- NOTE | 2016-10-30 17:04 | OP ---
OPERATIVE REPORT: DATE OF OPERATION: 10/29/16 - inpatient, SSU 331-01 DATE OF : 89 SURGEON: Jose Martinez MD [employer] OPERATOR: TATE Aviles ANESTHESIOLOGIST: Dr. Quezada. ANESTHESIA: General with local. PRE-OP DIAGNOSES: 1. Posterior and anterior anal fissure. 2. Perirectal abscess. 3. Hemorrhage from anus and rectum. POST-OP DIAGNOSES: 1. Anterior and posterior anal fissure. 2. Large circumferential perirectal abscess. 3. Large amount of dark blood clot in the mid and distal rectum without obvious source of bleeding but no active site noted. OPERATIVE PROCEDURE: Anorectal exam under anesthesia with seton suture placement, rigid sigmoidoscopy, and packing of perirectal abscess. INDICATIONS: Ms. Krista Vasquez is a 30-year-old woman, who had had a longstanding anal fissure, who presented last week with a rather large perirectal abscess. This was incised and drained in the operating room last Saturday and she had been doing well for several days postoperatively when she developed increasing pain and elevated white blood cell count and subsequently had spontaneous drainage from another site in the perianal verge with a large amount of pus. Her white count trended down nicely; however, she has been having some bleeding from her rectum the last 36 hours. Her hemoglobin has dropped slightly and in light of the fact that although her white blood cell count is improving, from an infectious standpoint, I was concerned for the persistent bleeding and she is now being taken back to the operating room for an exam under anesthesia. The procedure was discussed with the patient and her mother and the risks but not limited to bleeding, infection, persistent abscess formation, incontinence, discomfort, and risks of anesthesia were all explained. ESTIMATED BLOOD LOSS: Minimal, but old clot was evacuated from the rectum. DRAINS: Seton suture using a blue vessel loop. COMPLICATIONS: None. DESCRIPTION OF PROCEDURE: Written informed consent was obtained and the patient was taken to the operating room, placed in the supine position. General anesthesia was administered and sequential compression devices were placed. She was placed in the prone alicia-knife position. The perianal area and buttocks were prepped and draped in the usual sterile fashion. Time-out verification was completed. Next, the usual perianal block using 0.5% Marcaine with epinephrine was fashioned. It was obvious that there was some clot extruding from the anus and passing the digital lubricated finger, there was a large amount of clot in the rectum. Using retractors, we were able to aspirate this with suction and irrigate the area. There was no obvious evidence of bright red blood per rectum, although there was some bleeding at the site of the posterior anal fissure at the mucosal level as we spread the anus, but this stopped with pressure. After I irrigated and evacuated as much as clot as possible, I did place the rigid sigmoidoscope up to about 12 to 15 cm. It was apparent that there had been old blood lining the mancini of the rectum even up to this point but no obvious bright red blood or source of bleeding. The mucosa appeared to be healthy and pink. I noted no evidence of proctitis; however, this was certainly not an ideal exam with some of the blood adherent to the wall. Digitally, I did not appreciate any masses, abnormality, or fistulous openings. At this point, we turned our attention to the abscess. She has had a previous anal fissure and this had spontaneously drained through the posterior midline. At this point, it was noted that when she had spontaneously drained pus over the weekend, there was a new opening at about the 10 o'clock position which was quite large and I was able to place my finger into the entire abscess cavity which really extended circumferentially around the entire anus and it appeared to be adequately drained and was healthy and pink. There was no odor. We, once again, irrigated this well. I did not make any further counterincisions. There appeared to be no undrained abscess. I did place two blue vessel loops through the internal opening at the site of the anal fissure as there was a fistulous connection between that and the spontaneous draining abscess cavity at the 10 o'clock position. These were tied with 0 silk suture and two vessel loops were placed. Once we had completed this part of the evaluation, I noted no evidence of acute bleeding and the abscess appeared to be well drained. The abscess cavity was then packed lightly loosely with one half-inch Nu Gauze dressing and a dry sterile dressing was applied. The patient tolerated the procedure well and was taken to the recovery room in stable condition. CC: [facility]; [facility]* [id number]/[facility] #: [id number] MAMI
[2016-10-31] MEDS: oxyCODONE/Acetamin 5/325 MG* TAB PO PRN ×5 (05:25→23:37)
[2016-10-31] MEDS: Piperac/Tazob 3.375 gm in NS* 3.375 GM/100 ML BAG IVPB SCH ×3 (05:28→21:35)
[2016-10-31] MEDS: HYDROmorphone* 1 MG/ML 1 ML SYR IV PRN ×3 (05:51→10:29)
[2016-10-31] MEDS: PTO:Fluticasone HFA 110 mcg(NF) MDI INH SCH ×2 (07:53→18:46)
[2016-10-31] MEDS: Amphetamine MIXED SALT TAB* 10 MG TAB PO SCH ×2 (08:15→10:34)
[2016-10-31] MEDS: Citalopram TAB* 10 MG PO SCH (09:10)
[2016-10-31] MEDS: ARIPiprazole TAB* 5 MG PO SCH (09:10)
[2016-10-31] MEDS: ETHINYL ESTRADIOL PO SCH (09:12)
[2016-10-31] MEDS: Magnesium Hydroxide LIQ* 30 ML UDC PO SCH ×2 (09:12→21:35)
[2016-10-31] MEDS: NORETHINDRONE PO SCH (09:12)
--- NOTE | 2016-10-31 10:12 | PN ---
Progress Note - Progress Note SOAP: Subjective: [] Having less pain today No further bleeding, passing some flatus, no BM Urinating without difficulty Is ambulating a little more Objective: Temp Pulse Resp BP Pulse Ox 97.7 F 67 16 114/68 100 10/31/16 07:31 10/31/16 07:31 10/31/16 09:09 10/31/16 07:31 10/31/16 07:31 Intake & Output 10/29/16 10/30/16 10/31/16 11/01/16 06:59 06:59 06:59 06:59 Intake Total 2605 2715 1749 240 Output Total 890 3600 2675 Balance 1715 -885 -926 240 Intake: IV Fluids 70 1335 204 LR 1335 170 NS' 70 34 IVPB 325 320 ABX - PIPERACILLIN 325 320 Oral 2210 1380 1225 240 Output: Urine 890 3600 2675 Other: Estimated Void Medium # Bowel Movements 1 Estimated Stool Amount Medium # Voids 1 PEX: Comfortable Lungs are CTA Abd is soft and non-tender Christie-anal--slight odor, seropurulent drainage from abscess cavity. No bleeding. No redness or new induration. Appropriate tenderness. No labs Assessment: Christie-rectal abscess, anal fissure--showing slow improvement No further rectal bleeding [] Plan: Continue IV abx Analgesia Sitz bath A portion of the packing was "backed out" and removed--will remove small section daily. Increase activity Hold on subq heparin with recent bleeding that has no stopped, source unknown.
[2016-11-01] MEDS: oxyCODONE/Acetamin 5/325 MG* TAB PO PRN ×5 (03:40→21:04)
[2016-11-01] MEDS: Piperac/Tazob 3.375 gm in NS* 3.375 GM/100 ML BAG IVPB SCH ×3 (04:59→21:03)
[2016-11-01] MEDS: PTO:Fluticasone HFA 110 mcg(NF) MDI INH SCH ×2 (06:41→20:53)
--- NOTE | 2016-11-01 07:49 | PN ---
Progress Note - Progress Note SOAP: Subjective: Continues to have less pain Serous drainage from perineum No bleeding She is passing flatus, no BM Objective: Temp Pulse Resp BP Pulse Ox 97.4 F 63 16 108/64 100 11/01/16 03:50 11/01/16 03:50 11/01/16 05:36 11/01/16 03:50 11/01/16 03:50 Intake & Output 10/30/16 10/31/16 11/01/16 11/02/16 06:59 06:59 06:59 06:59 Intake Total 2715 1749 2062 Output Total 3600 2675 2500 Balance -885 -926 -438 Intake: IV Fluids 1335 204 232 ABX - PIPERACILLIN 105 LR 1335 170 NS' 34 127 IVPB 320 100 ABX - PIPERACILLIN 320 100 Oral 1380 1225 1730 Output: Urine 3600 2675 2500 PEX: Lungs are CTA Abd is soft and non-distended Per-rectal area not examined as patient just waking up and starting to eat breakfast Ext without edema CBC pending Assessment: Christie-rectal abscess, anal fissure s/P I and D Plan: Continue IV abx Will pre-medicate and remove all packing later this morning Sitz bath Hold on sub q heparin with recent rectal bleeding-this has now stopped. Check WBC today
[2016-11-01 08:20] LABS: Hematocrit 27 % (35-47); Hemoglobin 8.7 g/dl (12.0-16.0); Mean Corpuscular HGB Conc 33 g/dl (31-36); Mean Corpuscular Hemoglobin 28 pg (27-31); Mean Corpuscular Volume 87 fL (80-97); Mean Platelet Volume 7 um3 (7.4-10.4); Red Blood Count 3.07 10^6/ul (4.0-5.4); Red Cell Distribution Width 14 % (10.5-15); White Blood Count 16.8 10^3/ul (3.5-10.8)
[2016-11-01 08:26] LABS: Add Diff/Slide Review? Slide Review Added; Comments Flag Yes
[2016-11-01] MEDS: Magnesium Hydroxide LIQ* 30 ML UDC PO SCH ×2 (08:32→21:04)
[2016-11-01] MEDS: Citalopram TAB* 10 MG PO SCH (08:32)
[2016-11-01] MEDS: ARIPiprazole TAB* 5 MG PO SCH (08:32)
[2016-11-01] MEDS: ETHINYL ESTRADIOL PO SCH (08:32)
[2016-11-01] MEDS: Amphetamine MIXED SALT TAB* 10 MG TAB PO SCH ×2 (08:32→10:50)
[2016-11-01] MEDS: NORETHINDRONE PO SCH (08:32)
[2016-11-01 10:18] LABS: Eosinophils % 5 % (0-6); Immature Granulocytes 11 % (0-9); Metamyelocytes % 3 % (0-2); Myelocytes % 4 % (0-1); Neutrophil % 54 % (38-83); Reactive Lymph % 1 % (0-6)
[2016-11-01 10:20] LABS: Hypochromasia 1+; Polychromasia 1+
[2016-11-01] MEDS: LORazepam TAB(*) 0.5 MG PO PRN (10:50)
[2016-11-01] MEDS: HYDROmorphone* 1 MG/ML 1 ML SYR IV PRN (11:41)
[2016-11-01] MEDS ORDERED: HYDROmorphone* 1 MG/ML 1 ML SYR IV ONE (12:00)
--- NOTE | 2016-11-01 12:07 | PN ---
Progress Note - Progress Note Note: Per request of all of the perirectal packing was removed after premedicating the patient with Dilaudid 1 mg IV;there was no surrounding erythema;setons were noted;pt tolerated packing removal well;dry 4x4s covered the wound.SULLY Castellanos 11/01/16 [id number]
[2016-11-02] MEDS: Piperac/Tazob 3.375 gm in NS* 3.375 GM/100 ML BAG IVPB SCH ×3 (04:48→22:15)
[2016-11-02] MEDS: oxyCODONE/Acetamin 5/325 MG* TAB PO PRN ×5 (04:48→23:27)
[2016-11-02] MEDS: Magnesium Hydroxide LIQ* 30 ML UDC PO SCH ×2 (08:21→22:15)
[2016-11-02] MEDS: ARIPiprazole TAB* 5 MG PO SCH (08:22)
[2016-11-02] MEDS: Citalopram TAB* 10 MG PO SCH (08:22)
[2016-11-02] MEDS: Amphetamine MIXED SALT TAB* 10 MG TAB PO SCH ×2 (08:22→10:22)
[2016-11-02] MEDS: PTO:Fluticasone HFA 110 mcg(NF) MDI INH SCH ×2 (08:22→20:56)
[2016-11-02] MEDS: ETHINYL ESTRADIOL PO SCH (08:23)
[2016-11-02] MEDS: NORETHINDRONE PO SCH (08:23)
[2016-11-02] MEDS: HYDROmorphone* 1 MG/ML 1 ML SYR IV PRN ×2 (09:16→13:05)
[2016-11-02] MEDS: LORazepam TAB(*) 0.5 MG PO PRN (09:17)
--- NOTE | 2016-11-02 09:58 | PN ---
Progress Note - Progress Note SOAP: Subjective: Feels a little better-still with significant pain Had a BM this morning-some blood noted. Tolerating po Objective: Temp Pulse Resp BP Pulse Ox 97.7 F 77 18 93/57 100 11/02/16 07:57 11/02/16 07:57 11/02/16 09:17 11/02/16 07:57 11/02/16 07:57 PEX: Lungs are clear Abd is soft Zarina-anal--Seton suture in place, some seropurulent drainage, no odor, no induration or evidence of undrained abscess. Abscess drainage site is open and without drainage Assessment: S/P I and D of zarina-rectal abscess Anal fissure and new anal fistula Overall improved Plan: Continue IV antibiotics Sitz bath Hold subq heparin in light of recent bleeding She lives alone and her mother is going back home to [place] for weekend. She is close to being ready for discharge but she will need some help at home.
[2016-11-03] MEDS: oxyCODONE/Acetamin 5/325 MG* TAB PO PRN ×5 (03:51→20:37)
[2016-11-03 05:37] LABS: Hematocrit 30 % (35-47); Hemoglobin 9.9 g/dl (12.0-16.0); Mean Corpuscular HGB Conc 33 g/dl (31-36); Mean Corpuscular Hemoglobin 29 pg (27-31); Mean Corpuscular Volume 86 fL (80-97); Mean Platelet Volume 6 um3 (7.4-10.4); Red Blood Count 3.48 10^6/ul (4.0-5.4); Red Cell Distribution Width 14 % (10.5-15); White Blood Count 11.7 10^3/ul (3.5-10.8)
[2016-11-03] MEDS: Piperac/Tazob 3.375 gm in NS* 3.375 GM/100 ML BAG IVPB SCH ×3 (05:41→22:37)
[2016-11-03] MEDS: Amphetamine MIXED SALT TAB* 10 MG TAB PO SCH ×2 (08:00→10:47)
[2016-11-03] MEDS: NORETHINDRONE PO SCH (08:01)
[2016-11-03] MEDS: Citalopram TAB* 10 MG PO SCH (08:01)
[2016-11-03] MEDS: Magnesium Hydroxide LIQ* 30 ML UDC PO SCH ×2 (08:01→20:37)
[2016-11-03] MEDS: ETHINYL ESTRADIOL PO SCH (08:01)
[2016-11-03] MEDS: ARIPiprazole TAB* 5 MG PO SCH (08:01)
[2016-11-03] MEDS: PTO:Fluticasone HFA 110 mcg(NF) MDI INH SCH ×2 (08:01→20:01)
--- NOTE | 2016-11-03 11:43 | PN ---
Progress Note - Progress Note SOAP: Subjective: Continues to feel better Has had several bowel movement Less pain Urinating well Objective: Temp Pulse Resp BP Pulse Ox 97.4 F 76 20 127/53 99 11/03/16 07:35 11/03/16 10:28 11/03/16 10:28 11/03/16 07:35 11/03/16 10:28 Intake & Output 11/01/16 11/02/16 11/03/16 11/04/16 06:59 06:59 06:59 06:59 Intake Total 2062 1040 2229 Output Total 2500 3600 1200 Balance -438 -2560 1029 Intake: IV Fluids 232 30 60 ABX - PIPERACILLIN 105 NS' 127 30 60 IVPB 100 210 319 ABX - PIPERACILLIN 100 210 319 Oral 9227 095 5679 Output: Urine 2500 3600 1200 Other: Estimated Void Large # Bowel Movements 2 Estimated Stool Amount Large # Voids 1 PEX: Comfortable Abd is non-tender Zarina-anal area is clean without purulence or odor, dressing in place Laboratory Results - last 24 hr 11/03/16 04:57 WBC 11.7 H RBC 3.48 L Hgb 9.9 L Hct 30 L MCV 86 MCH 29 MCHC 33 RDW 14 Plt Count 727 H D MPV 6 L Neut % (Auto) 64.5 Lymph % (Auto) 23.7 L [place] % (Auto) 8.3 Eos % (Auto) 2.9 Baso % (Auto) 0.6 Absolute Neuts (auto) 7.5 Absolute Lymphs (auto) 2.8 Absolute Monos (auto) 1.0 H Absolute Eos (auto) 0.3 Absolute Basos (auto) 0.1 Absolute Nucleated RBC 0 Nucleated RBC % 0 Assessment: S/P I and D zarina-rectal abscess--improved WBC down Plan: She is ready for discharge from surgical standpoint but has no support at home until Saturday when her mother will return and will be able to help her at home. She is reluctant to go home before Saturday. Continue IV abx Sitz bath Continue to hold heparin-she is now up and ambulating more.
[2016-11-04] MEDS: oxyCODONE/Acetamin 5/325 MG* TAB PO PRN ×3 (03:17→14:47)
[2016-11-04] MEDS: Piperac/Tazob 3.375 gm in NS* 3.375 GM/100 ML BAG IVPB SCH ×2 (06:14→12:54)
[2016-11-04] MEDS: ETHINYL ESTRADIOL PO SCH (09:07)
[2016-11-04] MEDS: NORETHINDRONE PO SCH (09:07)
[2016-11-04] MEDS: Citalopram TAB* 10 MG PO SCH (09:08)
[2016-11-04] MEDS: ARIPiprazole TAB* 5 MG PO SCH (09:08)
[2016-11-04] MEDS: PTO:Fluticasone HFA 110 mcg(NF) MDI INH SCH (09:08)
[2016-11-04] MEDS: Amphetamine MIXED SALT TAB* 10 MG TAB PO SCH ×2 (09:08→10:31)
[2016-11-04] MEDS: Magnesium Hydroxide LIQ* 30 ML UDC PO SCH (09:13)
--- NOTE | 2016-11-04 10:14 | PN ---
Progress Note - Progress Note SOAP: Subjective: Doing well and would like to go home today Pain is adequately controlled Objective: Temp Pulse Resp BP Pulse Ox 98.6 F 84 16 108/56 98 11/04/16 07:59 11/04/16 07:59 11/04/16 09:08 11/04/16 07:59 11/04/16 07:59 PEX: Comfortable Lungs are CTA Christie-anal area is clean with some seropurulent drainage. No redness or induration. Assessment: Christie-rectal abscess s/p drainage==doing well Plan: D/C home today-her mother is going to take her home to [place] for the week Percocet Rx sent to [facility]--I stop checked 2 weeks of Augmentin Follow up in office on her return Instructions given.
[2016-11-04 12:42] VITALS: BP 113/70
== END 2016-11-04 15:15 | disposition home or self-care (01) | DRG 346 ==
LOC: OR 11:58 → SSU 12:30 → OBSVTOIN 10-23 12:30
PROVIDERS: ADMIT Surgery; ATTEND Surgery
PROC: 0D9P0ZZ Drainage of Rectum, Open Approach (ICD-10-PCS; 2016-10-23)
PROC: 0D9P80Z Drainage of Rectum with Drainage Device, Via Natural or Artificial Opening Endoscopic (ICD-10-PCS; principal; 2016-10-29 13:45)
DX: K61.1 Rectal abscess (principal); F32.9 Major depressive disorder, single episode, unspecified; F43.10 Post-traumatic stress disorder, unspecified; J45.909 Unspecified asthma, uncomplicated; R11.0 Nausea; K60.3 Anal fistula; F41.9 Anxiety disorder, unspecified; F98.8 Other specified behavioral and emotional disorders with onset usually occurring in childhood and adolescence; G89.29 Other chronic pain; Z87.891 Personal history of nicotine dependence; Z88.1 Allergy status to other antibiotic agents; Z91.040 Latex allergy status; Z91.410 Personal history of adult physical and sexual abuse
CPT/HCPCS: 36415; 72193; 80053; 81003; 81015; 81025; 85014; 85018; 85025; 85027; 85610; 86850; 86900; 86901; 87070; 87073; 87076; 87077; 87086; 87185; 87186; 87205; 94640; A9270-GY; G0378; J0330; J0585; J1100; J1170; J1644; J1885; J2250; J2405; J2543; J2704; J3010; Q9967

== ENCOUNTER 2017-01-19 14:56 | Inpatient (IN) | payer OTHER ==
[2017-01-19 15:43] LABS: Hematocrit 37 % (35-47); Hemoglobin 11.8 g/dl (12.0-16.0); Mean Corpuscular HGB Conc 32 g/dl (31-36); Mean Corpuscular Hemoglobin 26 pg (27-31); Mean Corpuscular Volume 81 fL (80-97); Mean Platelet Volume 7 um3 (7.4-10.4); Red Cell Distribution Width 16 % (10.5-15)
[2017-01-19 16:01] LABS: ALT 11 U/L (7-52); AST 14 U/L (13-39); Albumin 3.8 g/dL (3.2-5.2); Alkaline Phosphatase 45 U/L (34-104); Anion Gap 8 mmol/L (2-11); BUN/Creatinine Ratio 13.6 (8-20); Blood Urea Nitrogen 9 mg/dL (6-24); CO2 Carbon Dioxide 23 mmol/L (22-32); Calcium 9.3 mg/dL (8.6-10.3); Chloride 105 mmol/L (101-111); EGFR African American 136.2 (>60); EGFR Non-African American 105.9 (>60); Globulin 3.9 g/dL (2-4); Glucose 73 mg/dL (70-100); Potassium 3.9 mmol/L (3.5-5.0); Sodium 136 mmol/L (133-145); Total Protein 7.7 g/dL (6.4-8.9)
[2017-01-19 16:09] LABS: Acetaminophen < 15 mcg/mL; Alcohol < 10 mg/dL (<10); Salicylate < 2.50 mg/dL (<30)
[2017-01-19 18:43] LABS: Urine Bilirubin Negative (Negative); Urine Glucose Negative (Negative); Urine Nitrite Negative (Negative)
[2017-01-19 19:04] LABS: Benzodiazepine Urine Screen Presumptive Positive (None Detect)
[2017-01-20] MEDS ORDERED: Acetaminophen TAB* 325 MG PO PRN (01:21)
[2017-01-20] MEDS ORDERED: Al Hydrox/Mg Hydrox/Simet LIQ* 30 ML UDC PO PRN (01:21)
[2017-01-20] MEDS ORDERED: Albuterol HFA INHALER* 8 gm MDI INH PRN (01:22)
[2017-01-20] MEDS: Vitamin THERAPEUTIC TAB PO SCH ×2 (08:29→09:02)
[2017-01-20] MEDS ORDERED: Ibuprofen TAB* 400 MG PO PRN (13:31)
--- NOTE | 2017-01-20 13:31 | ED ---
Jamie Handley Alfonso, scribed for Juan Pablo Tobias MD on 01/19/17 at 1519 . Substance Abuse/Use - HPI Summary HPI Summary: This patient is a 31 year old F BIBA with police 941 to [facility] with a chief complaint of possible overdose. Pt states I took 15 5mg Valium pills an hour ago. She is tearful and hesitant to answer questions. Pt rates the pain 0/10 in severity. Symptoms aggravated and alleviated by nothing. Pt reports SI, disclosing to the nursing staff she was trying to hurt herself. PMHx of anxiety and depression. 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 Overdose Characteristics: Oral Severity Initially: Moderate Severity Currently: Moderate Character: Other - Tearful Aggravating Factor(s): Nothing Alleviating Factor(s): Nothing Associated Signs And Symptoms: Other: - SI - Allergies/Home Medications Allergies/Adverse Reactions: Allergies Allergy/AdvReac Type Severity Reaction Status Date / Time Ciprofloxacin [From Cipro] Allergy Intermediate Rash Verified 10/22/16 12:18 Latex Allergy Intermediate Rash Verified 10/22/16 12:18 seasonal Allergy Mild Unknown Uncoded 10/22/16 12:18 Reaction Details stitches (dissolvable) Allergy Itching Uncoded 10/22/16 12:18 PMH/Surg Hx/FS Hx/Imm Hx Endocrine/Hematology History: Denies: Hx Diabetes, Hx Thyroid Disease Cardiovascular History: Denies: Hx Hypertension, Other Cardiovascular Problems/Disorders Respiratory History: Reports: Hx Asthma Denies: Hx Chronic Obstructive Pulmonary Disease (COPD), Other Respiratory Problems/Disorders GI History: Reports: Other GI Disorders - anal fissure Denies: Hx Ulcer History: Reports: Hx Kidney Infection - 2006 Musculoskeletal History: Denies: Other Musculoskeletal History Sensory History: Reports: Hx Contacts or Glasses - GLASSES Denies: Hx Hearing Aid Opthamlomology History: Reports: Hx Contacts or Glasses - GLASSES Neurological History: Reports: Other Neuro Impairments/Disorders - ADD Psychiatric History: Reports: Hx Anxiety - ON MEDS, Hx Attention Deficit Hyperactivity Disorder, Hx Depression - Surgical History Surgery Procedure, Year, and Place: Ovarian Cyst removal 2006 and 2012; wisdom teeth Hx Anesthesia Reactions: No Infectious Disease History: No Infectious Disease History: Denies: Hx Clostridium Difficile, Hx Hepatitis, Hx Human Immunodeficiency Virus (HIV), Hx of Known/Suspected MRSA, Hx Shingles, Hx Tuberculosis, Hx Known/ Suspected VRE, Hx Known/Suspected VRSA, History Other Infectious Disease, Traveled Outside the [place] in Last 30 Days - Family History Known Family History: Negative: Cardiac Disease - Social History Alcohol Use: Occasionally Alcohol Amount: 3 drinks a week Substance Use Type: Reports: Marijuana Substance Use Comment - Amount & Last Used: marijuana use weekly Smoking Status (MU): Heavy Every Day Tobacco Smoker Type: Cigarettes Amount Used/How Often: 3/4 ppd Length of Time of Smoking/Using Tobacco: 4+ YEARS Review of Systems Negative: Fever Positive: Other - SI I took 15 5mg Valium pills an hour ago. All Other Systems Reviewed And Are Negative: Yes Physical Exam Triage Information Reviewed: Yes Vital Signs On Initial Exam: Initial Vitals Temp Pulse Resp BP Pulse Ox 98.3 F 79 18 119/69 99 01/19/17 15:08 01/19/17 15:08 01/19/17 15:08 01/19/17 15:08 01/19/17 15:08 Vital Signs Reviewed: Yes Appearance: Positive: Well-Appearing, No Pain Distress Skin: Positive: Warm, Skin Color Reflects Adequate Perfusion, Dry Head/Face: Positive: Normal Head/Face Inspection Eyes: Positive: Normal ENT: Positive: Normal ENT inspection Neck: Positive: Supple, Nontender Respiratory/Lung Sounds: Positive: Clear to Auscultation, Breath Sounds Present Cardiovascular: Positive: RRR Abdomen Description: Positive: Nontender, Soft Bowel Sounds: Positive: Present Musculoskeletal: Positive: Normal, Strength/ROM Intact Neurological: Positive: Normal, Sensory/Motor Intact, Alert, Oriented to Person Place, Time, CN Intact II-III Psychiatric: Positive: Other - Tearful and tesitant to answer questions - Katy Coma Scale Coma Scale Total: 15 Diagnostics - Vital Signs Vital Signs Temp Pulse Resp BP Pulse Ox 01/19/17 15:08 98.3 F 79 18 119/69 99 - Laboratory Lab Results: Lab Results 07/08/17 07/08/17 07/08/17 Range/Units 15:30 15:34 15:34 WBC 13.0 H (3.5-10.8) 10^3/ul RBC 4.60 (4.0-5.4) 10^6/ul Hgb 11.8 L (12.0-16.0) g/dl Hct 37 (35-47) % MCV 81 (80-97) fL MCH 26 L (27-31) pg MCHC 32 (31-36) g/dl RDW 16 H (10.5-15) % Plt Count 528 H (150-450) 10^3/ul MPV 7 L (7.4-10.4) um3 Neut % (Auto) 78.3 (38-83) % Lymph % (Auto) 15.2 L (25-47) % [place] % (Auto) 4.0 (1-9) % Eos % (Auto) 1.1 (0-6) % Baso % (Auto) 1.4 (0-2) % Absolute Neuts (auto) 10.2 H (1.5-7.7) 10^3/ul Absolute Lymphs (auto) 2.0 (1.0-4.8) 10^3/ul Absolute Monos (auto) 0.5 (0-0.8) 10^3/ul Absolute Eos (auto) 0.1 (0-0.6) 10^3/ul Absolute Basos (auto) 0.2 (0-0.2) 10^3/ul Absolute Nucleated RBC 0 10^3/ul Nucleated RBC % 0 Sodium 136 (133-145) mmol/L Potassium 3.9 (3.5-5.0) mmol/L Chloride 105 (101-111) mmol/L Carbon Dioxide 23 (22-32) mmol/L Anion Gap 8 (2-11) mmol/L BUN 9 (6-24) mg/dL Creatinine 0.66 (0.51-0.95) mg/dL Est GFR ( Amer) 136.2 (>60) Est GFR (Non-Af Amer) 105.9 (>60) BUN/Creatinine Ratio 13.6 (8-20) Glucose 73 (70-100) mg/dL POC Glucose (mg/dL) 78 (74-106) mg/dL Lactic Acid (0.5-2.0) mmol/L Calcium 9.3 (8.6-10.3) mg/dL Total Bilirubin 0.40 (0.2-1.0) mg/dL AST 14 (13-39) U/L ALT 11 (7-52) U/L Alkaline Phosphatase 45 (34-104) U/L Total Protein 7.7 (6.4-8.9) g/dL Albumin 3.8 (3.2-5.2) g/dL Globulin 3.9 (2-4) g/dL Albumin/Globulin Ratio 1.0 (1-3) Beta HCG, Quant < 0.60 mIU/mL Urine Color Urine Appearance Urine pH (5-9) Ur Specific [place] (1.010-1.030) Urine Protein (Negative) Urine Ketones (Negative) Urine Blood (Negative) Urine Nitrate (Negative) Urine Bilirubin (Negative) Urine Urobilinogen (Negative) Ur Leukocyte Esterase (Negative) Urine Glucose (Negative) Urine Ascorbic Acid (Negative) Salicylates < 2.50 (<30) mg/dL Urine Opiates Screen (None Detect) Acetaminophen < 15 mcg/mL Ur Barbiturates Screen (None Detect) Ur Phencyclidine Scrn (None Detect) Ur Amphetamines Screen (None Detect) U Benzodiazepines Scrn (None Detect) Urine Cocaine Screen (None Detect) U Cannabinoids Screen (None Detect) Serum Alcohol < 10 (<10) mg/dL 01/19/17 01/19/17 01/19/17 Range/Units 15:34 18:33 18:33 WBC (3.5-10.8) 10^3/ul RBC (4.0-5.4) 10^6/ul Hgb (12.0-16.0) g/dl Hct (35-47) % MCV (80-97) fL MCH (27-31) pg MCHC (31-36) g/dl RDW (10.5-15) % Plt Count (150-450) 10^3/ul MPV (7.4-10.4) um3 Neut % (Auto) (38-83) % Lymph % (Auto) (25-47) % [place] % (Auto) (1-9) % Eos % (Auto) (0-6) % Baso % (Auto) (0-2) % Absolute Neuts (auto) (1.5-7.7) 10^3/ul Absolute Lymphs (auto) (1.0-4.8) 10^3/ul Absolute Monos (auto) (0-0.8) 10^3/ul Absolute Eos (auto) (0-0.6) 10^3/ul Absolute Basos (auto) (0-0.2) 10^3/ul Absolute Nucleated RBC 10^3/ul Nucleated RBC % Sodium (133-145) mmol/L Potassium (3.5-5.0) mmol/L Chloride (101-111) mmol/L Carbon Dioxide (22-32) mmol/L Anion Gap (2-11) mmol/L BUN (6-24) mg/dL Creatinine (0.51-0.95) mg/dL Est GFR ( Amer) (>60) Est GFR (Non-Af Amer) (>60) BUN/Creatinine Ratio (8-20) Glucose (70-100) mg/dL POC Glucose (mg/dL) (74-106) mg/dL Lactic Acid 1.0 (0.5-2.0) mmol/L Calcium (8.6-10.3) mg/dL Total Bilirubin (0.2-1.0) mg/dL AST (13-39) U/L ALT (7-52) U/L Alkaline Phosphatase (34-104) U/L Total Protein (6.4-8.9) g/dL Albumin (3.2-5.2) g/dL Globulin (2-4) g/dL Albumin/Globulin Ratio (1-3) Beta HCG, Quant mIU/mL Urine Color Yellow Urine Appearance Cloudy Urine pH 5.0 (5-9) Ur Specific [place] 1.013 (1.010-1.030) Urine Protein Negative (Negative) Urine Ketones 2+ H (Negative) Urine Blood Negative (Negative) Urine Nitrate Negative (Negative) Urine Bilirubin Negative (Negative) Urine Urobilinogen Negative (Negative) Ur Leukocyte Esterase Negative (Negative) Urine Glucose Negative (Negative) Urine Ascorbic Acid * H (Negative) Salicylates (<30) mg/dL Urine Opiates Screen None detected (None Detect) Acetaminophen mcg/mL Ur Barbiturates Screen None detected (None Detect) Ur Phencyclidine Scrn None detected (None Detect) Ur Amphetamines Screen Presumptive positive H (None Detect) U Benzodiazepines Scrn Presumptive positive H (None Detect) Urine Cocaine Screen None detected (None Detect) U Cannabinoids Screen Presumptive positive H (None Detect) Serum Alcohol (<10) mg/dL Result Diagrams: 01/19/17 15:34 01/19/17 15:34 Lab Statement: Any lab studies that have been ordered have been reviewed, and results considered in the medical decision making process. - EKG 1517 Cardiac Rate: NL - BPM 73 EKG Rhythm: Sinus Rhythm Course/Dx - Course Course Of Treatment: Krista Hopkins presented after a self-reported OD of valium. She was observed for several hours without any change in her clinical condition and medically cleared. - Diagnoses Provider Diagnoses: Depression, Overdose Discharge - Discharge Plan Condition: Stable Disposition: [place] [place] [place] The documentation as recorded by the Jamie valdovinos Alfonso accurately reflects the service I personally performed and the decisions made by Jatinder singh Richard L, MD.
[2017-01-20] MEDS: Citalopram TAB* 40 MG PO SCH (13:52)
[2017-01-20] MEDS: ARIPiprazole TAB* 5 MG PO SCH (13:52)
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
[2017-01-20] MEDS: Mometasone 220 MCG MDI INH SCH (21:15)
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
[2017-01-21] MEDS: Vitamin THERAPEUTIC TAB PO SCH (08:14)
[2017-01-21] MEDS: ARIPiprazole TAB* 5 MG PO SCH (08:14)
[2017-01-21] MEDS: Citalopram TAB* 40 MG PO SCH (08:14)
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
[2017-01-21] MEDS: BIRTH CONTROL PO SCH (16:41)
[2017-01-21] MEDS: Mometasone 220 MCG MDI INH SCH (20:31)
--- NOTE | 2017-01-21 23:35 | CONS ---
CC: [facility] CONSULTATION REPORT: DATE OF CONSULT: 01/21/17 REFERRING PROVIDER: Dr. Mackenzie. REASON FOR CONSULTATION: Recent anal surgery. HISTORY OF PRESENT ILLNESS: Ms. Krista Vasquez is a 31-year-old woman, well known to me from my treatment of her perianal abscess in the spring , has required a prolonged hospitalization and several drainage procedures. She had developed an anal fistula. This had been treated as an outpatient recently. [place], is a [employer] student, and had been referred to a colorectal surgeon, and about 10 to 14 days ago, underwent a procedure at the [facility]. She is not certain what this procedure done was and has not had her first postoperative visit yet and is not certain when this is. She does state that the seton sutures are not in place, but is not certain if a formal fistulotomy was performed. She has been doing better progressively with less discomfort. She has been having normal bowel movements without incontinence and has had no fevers, shakes, or chills or bleeding. She was admitted to the behavior health unit last night after an attempted suicide and will hopefully be going home in the next several days after evaluation by psychiatry team. I did not perform a formal physical examination today due to the recent surgery by another colorectal surgeon and the fact that she seems to be improving and also her situation presently here in the behavioral health unit. IMPRESSION: History of perianal abscess, status post incision and drainage. She recently underwent another anal procedure at the [facility]. I am not certain what this procedure has been, but may have been a formal anal fistulotomy. She seems to be doing well from this standpoint. It appears that she will be discharged home in the next several days and she should keep her followup with the surgeon in [place], and certainly if there are any problems when she was here in [place], I would be happy to see her in the office for followup or have any other question or concerns. Thank you for this consultation. [id number]/[facility] #: [id number] MAMI
[2017-01-22] MEDS: Citalopram TAB* 40 MG PO SCH (08:23)
[2017-01-22] MEDS: Vitamin THERAPEUTIC TAB PO SCH (08:23)
[2017-01-22] MEDS: ARIPiprazole TAB* 5 MG PO SCH (08:23)
[2017-01-22] MEDS: BIRTH CONTROL PO SCH (08:24)
[2017-01-22 08:25] VITALS: BP 108/65
[2017-01-22] MEDS ORDERED: CMCS: Amphetamine/Dextroamph ER(NF) 10 MG CAP.ER PO SCH (09:00)
--- NOTE | 2017-01-22 12:43 | DS ---
Treatment Course & Assessment Inpatient DSM-IV Dx: 1. MDD, R, S w/o PFs. 2. PTSD - [place] Mental Illness: Major Depressive d/o, recurrent, severe w/o psychosis. PTSD - [place] Medical Illness: Anal fissure. Asthma. S/P anal surgery Discharge Planning - Discharge Planning Medications: Current Medications Acetaminophen (Tylenol Tab*) 650 mg PO Q4H PRN PRN Reason: PAIN or TEMP > 101 F Last Admin: 01/20/17 01:30 Dose: 650 mg Al Hydrox/Mg Hydrox/Simethicone (Maalox Plus*) 30 ml PO Q4H PRN PRN Reason: INDIGESTION Albuterol (Ventolin Hfa Inhaler*) 2 puff INH Q6H PRN PRN Reason: SOB/WHEEZING Amphetamine/Dextroamphetamine (Adderal Xr (Nf)) 20 mg PO DAILY [facility] Last Admin: 01/22/17 08:23 Dose: 20 mg Aripiprazole (Abilify Tab*) 10 mg PO DAILY [facility] Last Admin: 01/22/17 08:23 Dose: 10 mg Citalopram Hydrobromide (Celexa Tab*) 40 mg PO DAILY [facility] Last Admin: 01/22/17 08:23 Dose: 40 mg Ibuprofen (Motrin Tab*) 400 mg PO Q6H PRN PRN Reason: For rectal pain Last Admin: 01/21/17 08:28 Dose: 400 mg Mometasone Furoate (Asmanex 220 Mcg Mdi *) 2 puff INH BEDTIME [facility] Last Admin: 01/21/17 20:31 Dose: Not Given Multivitamins (Theragran Tab*) 1 tab PO DAILY [facility] Last Admin: 01/22/17 08:23 Dose: 1 tab Pto Non Formulary Med* ( Control 1 Tab) 1 tab PO DAILY PO[facility] Last Admin: 01/22/17 08:24 Dose: 1 tab Discharge Planning: Prescriptions provided for discharge [] Yes [] No Follow up care details as per social work arrangements. Patient response to discharge plan: [] eager for discharge [] agreeable with discharge plan [] ambivalent about discharge [] disagrees with discharge today
--- NOTE | 2017-01-22 16:37 | CONS ---
PSYCHOLOGICAL REPORT: DATE OF CONSULT: 01/22/17 REASON FOR REFERRAL: Krista was referred for psychological testing secondary to concerns regarding possible depression as well as concerns regarding lethality. TEST ADMINISTERED: Krista completed the [place] Multiphasic Personality Inventory-2 (MMPI-2). She was given feedback in individual conversation thereafter. BEHAVIORAL OBSERVATIONS: Krista is a 31-year-old female, who was admitted secondary to ingestion of 15, 5 mg of diazepam pills with apparent intent to commit suicide. Currently Krista denies intent to kill herself, but describes going through an acute depressive reaction to perceived rejection by a person that she had recently been intimate with. 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 Krista remained rather seclusive during her rather short stay here, preferring to stay in a room rather than attend programming. However, she was cooperative with request to complete testing and was interested and active in discussion of test results. She describes having years of experience in outpatient psychotherapy and intends to return upon discharge. She has an established therapeutic rapport with professionals at [facility]. Krista expressed remorse for the conduct which lead to her hospitalization, denying ever having suicidal intent. This seems to be in somewhat of contradiction in terms of her presentation in the ED, however. She describes briefly, her difficulties with prior traumas, and describes having some difficulties in establishing trust in relationships currently. TESTS RESULTS: Krista provides valid protocols on this administration of the MMPI-2. She elevates the conversion hysteria scale (T = 73), as well as a paranoia and psychasthenic scales (T = 80) with again lesser elevation occurring on the schizophrenia scale (T = 70). Of interest, she has a subclinical score occurring on the depression scale (T = 60). Persons who score in this range on a conversion hysteria scale are described as being somewhat emotionally naive and at times may lack insight regarding their own or other behaviors. They tend to deny psychological duress until they are in acute stress. Persons who elevate the paranoia scale to this degree are described as being suspicious and at times overly sensitive. They are hypersensitive to rejection, and at times they express rather hostile thoughts and feelings. Persons who have experienced acute disappointment especially in the romantic context often elevate the scale secondary to interpersonal distress. Krista also elevates the anxiety index seen ethically. Persons who endorse items on the psychasthenia scale to this degree are described as being chronically tense, and have propensity towards indecision. Persons who score in this range often being to express emotional agitation and may exhibit some aggressive behavioral correlations. Of further interest are different scales within the conversion hysteria scale which include need for affection, somatic complaints, inhibition of aggression. Further clinical discussion should continue to help Krista process her rather recent romantic disappointment, as this seems to be the driving factor that lead to her overdose attempt. IMPRESSIONS AND RECOMMENDATIONS: Currently, Krista denies having any suicidal intent, although concerns are that her presentation was quite different upon admission here. Regardless she currently expresses positive expectations regarding her future, and appears to have regained her sense of perspective regarding her relationship with this gentleman. She expressed interest in seeing her friends this afternoon and enjoying the summer months in [place]. She expressed some relief that he will be moving on in the fall, and she has another year here at [place]. DIAGNOSTIC IMPRESSIONS: Impressions consistent with being reactive depressive disorder with elements of major depression being present including suicidal rumination. Her endorsement in testing context reveals other contributing personality vulnerabilities in regards to how she manages the emotional duress, and then personal problems. [id number]/[facility] #: [id number] MAIM
== END 2017-01-22 13:30 | disposition home or self-care (01) | DRG 885 ==
LOC: ED 14:56 → BSU 01-20 00:48
PROVIDERS: ADMIT Psychiatry & Neurology Psychiatry; ATTEND Psychiatry & Neurology Psychiatry
DX: F33.2 Major depressive disorder, recurrent severe without psychotic features (principal); F43.10 Post-traumatic stress disorder, unspecified; K60.2 Anal fissure, unspecified; J45.909 Unspecified asthma, uncomplicated; T42.4X2A Poisoning by benzodiazepines, intentional self-harm, initial encounter; Y92.9 Unspecified place or not applicable; X58.XXXA Exposure to other specified factors, initial encounter; Z88.8 Allergy status to other drugs, medicaments and biological substances; Z81.8 Family history of other mental and behavioral disorders
CPT/HCPCS: 36415; 80053; 80307; 80320; 80329; 81003; 83605; 84702; 85025; 93005; A9270-GY; G0480

== ENCOUNTER 2017-02-13 18:32 | Emergency (ER) | payer OTHER ==
[2017-02-13 18:45] VITALS: BP 120/70
--- NOTE | 2017-02-13 18:53 | UC ---
Complaint Female HPI - HPI Summary HPI Summary: 31 YEAR OLD FEMALE PRESENTS WITH COMPLAINS BURNING AND URINARY FREQUENCY. - History Of Current Complaint Chief Complaint: UCGU Stated Complaint: URINARY SYMPTOMS Time Seen by Provider: 02/13/17 18:53 Hx Last Menstrual Period: 02/01/17 - Allergies/Home Medications Allergies/Adverse Reactions: Allergies Allergy/AdvReac Type Severity Reaction Status Date / Time Ciprofloxacin [From Cipro] Allergy Intermediate Rash Verified 02/13/17 18:45 Latex Allergy Intermediate Rash Verified 02/13/17 18:45 seasonal Allergy Mild Unknown Uncoded 02/13/17 18:45 Reaction Details stitches (dissolvable) Allergy Itching Uncoded 02/13/17 18:45 PMH/Surg Hx/FS Hx/Imm Hx Previously Healthy: Yes - Surgical History Surgical History: Yes Surgery Procedure, Year, and Place: Ovarian Cyst removal 2006 and 2012; wisdom teeth - Family History Known Family History: Positive: None Negative: Cardiac Disease - Social History Alcohol Use: Occasionally Alcohol Amount: 3 drinks a week Substance Use Type: Marijuana Substance Use Comment - Amount & Last Used: marijuana use weekly Smoking Status (MU): Former Smoker Type: Cigarettes Amount Used/How Often: 3/4 ppd Length of Time of Smoking/Using Tobacco: 4+ YEARS When Did the Patient Quit Smoking/Using Tobacco: Quit October 10, 2016 - Immunization History Most Recent Influenza Vaccination: n/a Most Recent Pneumonia Vaccination: patient un-sure if she has received in the past- she will check with pcp Review of Systems Constitutional: Negative Skin: Negative Eyes: Negative ENT: Negative Respiratory: Negative Cardiovascular: Negative Gastrointestinal: Negative Genitourinary: Dysuria, Frequency, Urgency Motor: Negative Neurovascular: Negative Musculoskeletal: Negative Neurological: Negative Psychological: Negative All Other Systems Reviewed And Are Negative: Yes Physical Exam Triage Information Reviewed: Yes Vital Signs: Initial Vital Signs Temp 36.9 C 02/13/17 18:39 Pulse 80 02/13/17 18:39 Resp 20 02/13/17 18:39 BP 120/70 02/13/17 18:39 Pulse Ox 100 02/13/17 18:39 Eye Exam: Normal ENT Exam: Normal Dental Exam: Normal Neck exam: Normal Neck: Positive: 1 Respiratory Exam: Normal Cardiovascular Exam: Normal Abdominal Exam: Normal Musculoskeletal Exam: Normal Neurological Exam: Normal Psychological Exam: Normal Skin Exam: Normal Complaint Female Dx - Differential Dx/Diagnosis Provider Diagnoses: URINARY FREQUNECY. DYSURIA Discharge - Discharge Plan Condition: Stable Disposition: HOME Prescriptions: Nitrofurantoin Monohyd Macro [Macrobid] 100 mg PO BID #[id number] cap Patient Education Materials: Urinary Tract Infection in Women (ED) Referrals: Nandini Rao DO [Primary Care Provider] - If Needed
== END 2017-02-13 19:40 | disposition home or self-care (01) ==
LOC: UCEAST 18:32
DX: R35.0 Frequency of micturition (principal); R30.0 Dysuria; Z87.891 Personal history of nicotine dependence
CPT/HCPCS: 81003; 84702; 87077; 87086; 87186; 99212; G0463

== ENCOUNTER 2019-03-12 20:09 | Emergency (ER) | payer BC, OTHER ==
--- NOTE | 2019-03-12 21:42 | ED ---
Allergic Reaction/Systemic - HPI Summary HPI Summary: This patient is a 33 year old F presenting to [facility] accompanied by a male gas prover with a chief complaint of hives since yesterday. Pt states she developed hives yesterday after getting a bee sting on her left arm. She applied hydrocortisone and it went away. A new rash appeared on her right arm today. The patient rates the pain 0/10 in severity. Symptoms aggravated by nothing. Symptoms alleviated by hydrocortisone. Pt reports photophobia, vomiting. Pt denies any fever, chills, erythema of eyes, sore throat, CP, SOB, cough, abdominal pain, nausea, dysuria, hematuria, myalgia, edema, or dizziness. She was diagnosed with manic psychosis a month ago. - History of Current Complaint Chief Complaint: EDRashSkinAbscess Time Seen by Provider: 03/12/19 21:29 Hx Obtained From: Patient, Other: - male gas prover Hx Last Menstrual Period: 02/01/17 Onset/Duration: Sudden Onset, Started days ago - 1, Still Present Timing: Constant, Lasting Days - 1 Severity Initially: Mild Severity Currently: Mild Pain Intensity: 0 Pain Scale Used: 0-10 Numeric Character: Hives Aggravating Factor(s): Nothing Alleviating Factor(s): Other - hydrocortisone, Nothing Associated Signs And Symptoms: Positive: Rash, Vomiting. Negative: Abdominal Pain, Chest Pain, Cough Wheezing, Difficulty Breathing, Nausea, Throat Tightening - Allergies/Home Medications Allergies/Adverse Reactions: Allergies Allergy/AdvReac Type Severity Reaction Status Date / Time MS Ciprofloxacin [From Cipro] Allergy Intermediate Rash Verified 02/13/17 18:45 MS Latex Allergy Intermediate Rash Verified 02/13/17 18:45 seasonal Allergy Mild Unknown Uncoded 02/13/17 18:45 Reaction Details stitches (dissolvable) Allergy Itching Uncoded 02/13/17 18:45 PMH/Surg Hx/FS Hx/Imm Hx Previously Healthy: No Endocrine/Hematology History: Denies: Hx Diabetes, Hx Thyroid Disease Cardiovascular History: Denies: Hx Hypertension, Other Cardiovascular Problems/Disorders Respiratory History: Reports: Hx Asthma Denies: Hx Chronic Obstructive Pulmonary Disease (COPD), Other Respiratory Problems/Disorders GI History: Reports: Other GI Disorders - anal fissure Denies: Hx Ulcer History: Reports: Hx Kidney Infection - 2006 Musculoskeletal History: Denies: Other Musculoskeletal History Sensory History: Reports: Hx Contacts or Glasses - GLASSES Denies: Hx Hearing Aid Opthamlomology History: Reports: Hx Contacts or Glasses - GLASSES Neurological History: Reports: Other Neuro Impairments/Disorders - ADD Psychiatric History: Reports: Hx Anxiety - ON MEDS, Hx Attention Deficit Hyperactivity Disorder, Hx Depression, Hx Community Mental Health Tx Denies: Hx Eating Disorder, Hx Inpatient Treatment, Hx Suicide Attempt, Hx of Violent Episodes Against Others - Surgical History Surgical History: Yes Surgery Procedure, Year, and Place: Ovarian Cyst removal 2006 and 2012; wisdom teeth Hx Anesthesia Reactions: No - Immunization History Immunizations Up to Date: Yes Infectious Disease History: No Infectious Disease History: Denies: Hx Clostridium Difficile, Hx Hepatitis, Hx Human Immunodeficiency Virus (HIV), Hx of Known/Suspected MRSA, Hx Shingles, Hx Tuberculosis, Hx Known/ Suspected VRE, Hx Known/Suspected VRSA, History Other Infectious Disease, Traveled Outside the [place] in Last 30 Days - Family History Known Family History: Positive: None Negative: Cardiac Disease - Social History Alcohol Use: Occasionally Alcohol Amount: 3 drinks a week Substance Use Type: Reports: Marijuana Substance Use Comment - Amount & Last Used: marijuana use weekly Smoking Status (MU): Former Smoker Type: Cigarettes Amount Used/How Often: 3/4 ppd Length of Time of Smoking/Using Tobacco: 4+ YEARS Review of Systems Negative: Fever, Chills Positive: Photophobia. Negative: Erythema Negative: Sore Throat Negative: Chest Pain Negative: Shortness Of Breath, Cough Positive: Vomiting. Negative: Abdominal Pain, Nausea Negative: dysuria, hematuria Negative: Myalgia, Edema Positive: Rash Neurological: Other - negative - dizziness All Other Systems Reviewed And Are Negative: Yes Physical Exam - Summary Physical Exam Summary: Constitutional: Well-developed, Well-nourished, Alert. (-) Distressed. Wearing industrial grade earmuffs, a blindfold, and sunglasses Skin: Warm, Dry. 2 stings on left arm. Undetectable rash on right forearm HENT: Normocephalic; Atraumatic Eyes: Conjunctiva normal Neck: Musculoskeletal ROM normal neck. (-) JVD, (-) Stridor, (-) Tracheal deviation Cardio: Rhythm regular, rate normal, Heart sounds normal; Intact distal pulses; The pedal pulses are 2+ and symmetric. Radial pulses are 2+ and symmetric. (-) Murmur Pulmonary/Chest wall: Effort normal. (-) Respiratory distress, (-) Wheezes, (-) Rales Abd: Soft, (-) tenderness, (-) Distension, (-) Guarding, (-) Rebound Musculoskeletal: (-) Edema Lymph: (-) Cervical adenopathy Neuro: Alert, Oriented x3 Psych: Mood and affect Normal Triage Information Reviewed: Yes Vital Signs On Initial Exam: Initial Vitals Temp Pulse Resp BP Pulse Ox 99.2 F 92 20 143/89 97 03/12/19 20:13 03/12/19 20:13 03/12/19 20:13 03/12/19 20:13 03/12/19 20:13 Vital Signs Reviewed: Yes Diagnostics - Vital Signs Vital Signs Temp Pulse Resp BP Pulse Ox 03/12/19 20:13 99.2 F 92 20 143/89 97 - Laboratory Lab Statement: Any lab studies that have been ordered have been reviewed, and results considered in the medical decision making process. Allergic Reaction Course/Dx - Course Course Of Treatment: This patient is a 33 year old F presenting to [facility] accompanied by a male gas prover with a chief complaint of hives since yesterday. Pt states she developed hives yesterday after getting a bee sting on her left arm. She applied hydrocortisone and it went away. A new rash appeared on her right arm today. The patient rates the pain 0/10 in severity. Symptoms aggravated by nothing. Symptoms alleviated by hydrocortisone. Pt reports photophobia, vomiting. Pt denies any fever, chills, erythema of eyes, sore throat, CP, SOB, cough, abdominal pain, nausea, dysuria, hematuria, myalgia, edema, or dizziness. She was diagnosed with manic psychosis a month ago. Physical exam shows 2 stings on left arm, an undetectable rash on her right forearm, and pt is wearing industrial grade earmuffs, a blindfold, and sunglasses. There was no sign of anaphylaxis. Dx is bee sting. Pt will be discharged. Pt was told to follow up with her psychiatrist within 2-3 days and to decrease her dose of Lamictal tomorrow if her rash continues to spread. She was told to return to the ED for any new or worsening symptoms. - Diagnoses Provider Diagnoses: Bee sting Discharge ED - Sign-Out/Discharge Documenting (check all that apply): Patient Departure - discharge Patient Received Moderate/Deep Sedation with Procedure: No - Discharge Plan Condition: Stable Disposition: HOME Patient Education Materials: Insect Bite or Sting (ED) Referrals: No Primary Care Phys,NOPCP [Primary Care Provider] - Additional Instructions: Follow up with your psychiatrist within 2-3 days. Decrease your dose of Lamictal tomorrow if your rash continues to spread. Return to the ED for any new or worsening symptoms. - Attestation Statements Document Initiated by Scribe: Yes Documenting Scribe: Abdoulaye Kim Provider For Whom Scribe is Documenting (Include Credential): Dr. Tyson Wells MD Scribe Attestation: Abdoulaye Handley, scribed for Dr. Tyson Wells MD on 03/12/19 at 2200. Status of Scribe Document: Ready
[2019-03-12 22:44] VITALS: BP 0/0
== END 2019-03-12 22:42 | disposition home or self-care (01) ==
LOC: ED 20:09
DX: T63.441A Toxic effect of venom of bees, accidental (unintentional), initial encounter (principal); Y92.9 Unspecified place or not applicable; J45.909 Unspecified asthma, uncomplicated; F41.9 Anxiety disorder, unspecified; F90.9 Attention-deficit hyperactivity disorder, unspecified type; F32.9 Major depressive disorder, single episode, unspecified; Z87.891 Personal history of nicotine dependence; Z79.899 Other long term (current) drug therapy; Z88.1 Allergy status to other antibiotic agents; Z91.040 Latex allergy status
CPT/HCPCS: 99281